=== PATIENT | female | born 1940 | race Caucasian/White ===

== ENCOUNTER 2017-07-08 09:17 | Day surgery (SDC) | payer MEDICARE ==
[~2017-07-08] VITALS: Ht 162.6 cm; Wt 47.5 kg
[2017-07-08 09:49] VITALS: BP 183/85
[2017-07-08] MEDS ORDERED: SODIUM CHLORIDE 0.9% 1,000 ML IV SCH (10:00)
[2017-07-08] MEDS ORDERED: LIDOCAINE-MPF 2% ,5ML ONE (10:06)
[2017-07-08] MEDS ORDERED: MIDAZOLAM 1 MG/ML, 5ML ONE (10:25)
[2017-07-08] MEDS ORDERED: FENTANYL PF 100 MCG/2ML ONE (10:25)
[2017-07-08] MEDS ORDERED: FLUMAZENIL 0.1 MG/1 ML, 5ML ONE (10:26)
[2017-07-08] MEDS ORDERED: NALOXONE 1 MG/ML, 2ML ONE (10:26)
== END 2017-07-08 13:00 ==
LOC: OUT 09:17
PROVIDERS: ATTEND Internal Medicine Hematology & Oncology
DX: C18.9 Malignant neoplasm of colon, unspecified (principal); D64.9 Anemia, unspecified; Z87.39 Personal history of other diseases of the musculoskeletal system and connective tissue; Z90.710 Acquired absence of both cervix and uterus; Z98.890 Other specified postprocedural states; Z96.642 Presence of left artificial hip joint
CPT/HCPCS: 49180; 77012; 88305; 99156; 99157; J2250; J3010; J3490; J2310

== ENCOUNTER → 2017-07-08 | Outpatient (CLI) | payer MEDICARE ==
[2017-07-08 13:31] LABS: BASOPHILS # (AUTO) 0.02 x10^3/uL (0-0.1); BASOPHILS % (AUTO) 1 % (0-1); EOSINOPHILS # (AUTO) 0.08 x10^3/uL (0-0.4); EOSINOPHILS % (AUTO) 2 % (1-7); LYMPHOCYTES # (AUTO) 1.51 x10^3/uL (1-3.4); LYMPHOCYTES % (AUTO) 41 % (22-44); MD NO; MEAN CORPUSCULAR HEMOGLOBIN 26.7 pg (27.0-34.8); MEAN CORPUSCULAR HGB CONC 32.9 g/dL (32.4-35.8); MEAN CORPUSCULAR VOLUME 81.1 fL (80-100); MEAN PLATELET VOLUME 8.4 fL (7.4-10.4); MONOCYTES # (AUTO) 0.42 x10^3/uL (0.2-0.8); MONOCYTES % (AUTO) 11 % (2-9); NEUTROPHILS # (AUTO) 1.66 x10^3/uL (1.8-6.8); NEUTROPHILS % (AUTO) 45 % (42-75); PLATELET COUNT 236 x10^3/uL (130-400); RED BLOOD COUNT 3.09 x10^6/uL (3.82-5.3); RED CELL DISTRIBUTION WIDTH 18.5 % (9.6-15.2)
[2017-07-08 13:41] LABS: % IRON SATURATION 6 % (20-55); IRON LEVEL 23 mcg/dL (50-170); TOTAL IRON BINDING CAPACITY 366 mcg/dL (250-450)
== END | disposition home or self-care (01) ==
LOC: LAB 13:08
PROVIDERS: ATTEND Family Medicine
DX: D50.8 Other iron deficiency anemias (principal)
CPT/HCPCS: 36415; 83540; 83550; 85025

== ENCOUNTER 2017-08-11 13:37 | Inpatient (IN) | payer MEDICARE ==
[~2017-08-11] VITALS: Ht 162.6 cm; Wt 52.3 kg
[2017-08-11] MEDS ORDERED: SODIUM CHLORIDE FLUSH 10ML SYR IVF ONE (14:00)
[2017-08-11] MEDS ORDERED: SODIUM CHLORIDE 0.9% 1,000ML IVBOLUS ONE (14:00)
[2017-08-11] MEDS ORDERED: ASPIRIN 81 MG TABLET CHEW PO ONE (14:00)
[2017-08-11 14:30] LABS: ALBUMIN 3.3 g/dL (3.4-5.0); ANION GAP 8 mmol/L (5-15); CALCIUM 11.5 mg/dL (8.5-10.1); CHLORIDE 104 mmol/L (98-107); CREATININE 0.79 mg/dL (0.55-1.02)
[2017-08-11 14:32] LABS: BASOPHILS # (AUTO) 0.03 x10^3/uL (0-0.1); BASOPHILS % (AUTO) 0 % (0-1); EOSINOPHILS # (AUTO) 0.04 x10^3/uL (0-0.4); EOSINOPHILS % (AUTO) 1 % (1-7); LYMPHOCYTES # (AUTO) 2.24 x10^3/uL (1-3.4); LYMPHOCYTES % (AUTO) 31 % (22-44); MD NO; MEAN CORPUSCULAR HEMOGLOBIN 26.1 pg (27.0-34.8); MEAN CORPUSCULAR VOLUME 78.9 fL (80-100); MEAN PLATELET VOLUME 10.5 fL (7.4-10.4); MONOCYTES # (AUTO) 0.78 x10^3/uL (0.2-0.8); MONOCYTES % (AUTO) 11 % (2-9); NEUTROPHILS # (AUTO) 4.06 x10^3/uL (1.8-6.8); NEUTROPHILS % (AUTO) 57 % (42-75); PLATELET COUNT 288 x10^3/uL (130-400)
[2017-08-11 14:35] LABS: ALKALINE PHOSPHATASE 110 U/L (45-117); BILIRUBIN,TOTAL 0.5 mg/dL (0.2-1.0); TOTAL PROTEIN 6.2 g/dL (6.4-8.2); TROPONIN I < 0.015 ng/mL (0.000-0.045)
[2017-08-11 14:56] LABS: ALANINE AMINOTRANSFERASE < 21 U/L (12-78)
[2017-08-11] MEDS ORDERED: ONDANSETRON ODT 4 MG PO PRN (15:30)
[2017-08-11] MEDS ORDERED: GUAIFENESIN/DM 200-20MG, 10ML UDC PO PRN (15:30)
[2017-08-11] MEDS ORDERED: ONDANSETRON 2MG/ML, 2ML IVPush PRN (15:30)
[2017-08-11] MEDS ORDERED: POTASSIUM CHLORIDE 40 MEQ in SODIUM CHLORIDE 0.9% 500 ML IV ONE (15:30)
[2017-08-11 15:41] LABS: FOLATE LEVEL > 20.0 ng/mL (3.1-17.5); TOTAL IRON BINDING CAPACITY 686 mcg/dL (250-450)
[2017-08-11 15:41] LABS: INTERNATIONAL NORMALIZED RATIO 1.28 (0.93-1.1); PROTHROMBIN TIME 13.1 Seconds (9.6-11.5)
[2017-08-11 15:44] LABS: % IRON SATURATION 95 % (20-55); IRON LEVEL 650 mcg/dL (50-170)
[2017-08-11] MEDS: ENOXAPARIN 40 MG/0.4 ML SQ SCH (16:00)
[2017-08-11 16:34] VITALS: BP 187/75
[2017-08-11] MEDS: LABETALOL 5MG/ML, 20ML IVPush PRN (16:34)
[2017-08-11 16:57] LABS: RED BLOOD COUNT 3.12 x10^6/uL (3.82-5.3)
[2017-08-11 17:06] LABS: ABSOLUTE RETICS # 0.079 x10^6/uL (0.5-2.5); RETICULOCYTE COUNT % 2.55 % (0.5-1.5)
[2017-08-11] MEDS: POTASSIUM CHLORIDE 20 MEQ in LACTATED RINGERS 1,000 ML IV SCH (17:29)
[2017-08-11 17:33] VITALS: BP 152/72
[2017-08-11 19:55] VITALS: BP 150/71
[2017-08-11] MEDS: POTASSIUM CHLORIDE 10 MEQ TABLET.ER PO SCH (20:46)
[2017-08-11 21:07] LABS: MICROSCOPIC INDICATED
[2017-08-11 21:08] LABS: CULTURE INDICATED? YES
[2017-08-12 01:43] VITALS: BP 160/67
[2017-08-12] MEDS: POTASSIUM CHLORIDE 20 MEQ in LACTATED RINGERS 1,000 ML IV SCH ×2 (03:06→15:36)
[2017-08-12 04:53] LABS: BASOPHILS # (AUTO) 0.02 x10^3/uL (0-0.1); BASOPHILS % (AUTO) 0 % (0-1); EOSINOPHILS # (AUTO) 0.06 x10^3/uL (0-0.4); EOSINOPHILS % (AUTO) 1 % (1-7); LYMPHOCYTES % (AUTO) 37 % (22-44); MD NO; MEAN CORPUSCULAR HEMOGLOBIN 25.8 pg (27.0-34.8); MEAN CORPUSCULAR HGB CONC 32.4 g/dL (32.4-35.8); MEAN CORPUSCULAR VOLUME 79.6 fL (80-100); MEAN PLATELET VOLUME 10.1 fL (7.4-10.4); MONOCYTES # (AUTO) 0.79 x10^3/uL (0.2-0.8); MONOCYTES % (AUTO) 16 % (2-9); NEUTROPHILS # (AUTO) 2.35 x10^3/uL (1.8-6.8); NEUTROPHILS % (AUTO) 46 % (42-75); PLATELET COUNT 232 x10^3/uL (130-400); RED BLOOD COUNT 3.04 x10^6/uL (3.82-5.3); RED CELL DISTRIBUTION WIDTH 21.5 % (9.6-15.2)
[2017-08-12 05:02] LABS: ALBUMIN 2.7 g/dL (3.4-5.0); ANION GAP 2 mmol/L (5-15); CALCIUM 10.2 mg/dL (8.5-10.1); CHLORIDE 112 mmol/L (98-107)
[2017-08-12 05:06] LABS: ALANINE AMINOTRANSFERASE 10 U/L (12-78); ALKALINE PHOSPHATASE 94 U/L (45-117); BILIRUBIN,TOTAL 0.5 mg/dL (0.2-1.0); CREATININE 0.68 mg/dL (0.55-1.02); TOTAL PROTEIN 5.2 g/dL (6.4-8.2)
[2017-08-12] MEDS: POTASSIUM CHLORIDE 10 MEQ TABLET.ER PO SCH (07:46)
[2017-08-12 08:00] VITALS: BP 155/73
[2017-08-12] MEDS ORDERED: OMNIPAQUE 350 MG/ML, 100ML BOTTLE ONE (10:57)
[2017-08-12] MEDS: METRONIDAZOLE PMX 500MG/100ML 100 ML IV SCH ×2 (13:30→15:36)
[2017-08-12 14:00] VITALS: BP 180/73
[2017-08-12] MEDS: PANTOPRAZOLE 40 MG IV IVPush SCH (14:21)
[2017-08-12] MEDS: CEFTRIAXONE PMX 1GM/50ML 50 ML IV SCH (14:21)
[2017-08-12] MEDS: ENOXAPARIN 40 MG/0.4 ML SQ SCH ×2 (16:00→19:20)
[2017-08-12] MEDS: AMLODIPINE 5 MG TABLET PO SCH (17:52)
[2017-08-12] MEDS: IBUPROFEN 200 MG TABLET PO PRN (20:07)
[2017-08-12 20:23] VITALS: BP_SYST 170; BP_SYST 173; BP_DIAS 71
[2017-08-12 21:14] VITALS: BP 161/65
[2017-08-13] MEDS: METRONIDAZOLE PMX 500MG/100ML 100 ML IV SCH ×3 (00:39→18:08)
[2017-08-13] MEDS: PANTOPRAZOLE 40 MG IV IVPush SCH ×2 (01:59→14:00)
[2017-08-13] MEDS: POTASSIUM CHLORIDE 20 MEQ in LACTATED RINGERS 1,000 ML IV SCH ×2 (01:59→14:00)
[2017-08-13 03:39] VITALS: BP 164/74
[2017-08-13 04:54] LABS: ANION GAP 5 mmol/L (5-15); CALCIUM 9.4 mg/dL (8.5-10.1); CHLORIDE 114 mmol/L (98-107); CREATININE 0.63 mg/dL (0.55-1.02)
[2017-08-13 05:06] LABS: MEAN CORPUSCULAR HEMOGLOBIN 25.9 pg (27.0-34.8); MEAN CORPUSCULAR HGB CONC 32.2 g/dL (32.4-35.8); MEAN CORPUSCULAR VOLUME 80.6 fL (80-100); MEAN PLATELET VOLUME 10.2 fL (7.4-10.4); PLATELET COUNT 219 x10^3/uL (130-400); RED BLOOD COUNT 2.83 x10^6/uL (3.82-5.3); RED CELL DISTRIBUTION WIDTH 21.6 % (9.6-15.2)
[2017-08-13 05:54] LABS: MD YES
[2017-08-13 05:57] LABS: BAND#(MANUAL) 0.15 x10^3/uL; BANDS%(MANUAL) 3 % (0-7); LYMPH#(MANUAL) 2.05 x10^3/uL (1-3.4); LYMPHS% (MANUAL) 41 % (22-44); MONOS#(MANUAL) 0.55 x10^3/uL (0.3-2.7); MONOS% (MANUAL) 11 % (2-9); SEG#(MANUAL) 2.25 x10^3/uL (1.8-6.8); SEGS% (MANUAL) 45 % (42-75)
[2017-08-13 05:58] LABS: <PLATELET ESTIMATE> ADEQUATE; ANISOCYTOSIS 1+; LARGE PLATELETS 1+; POLYCHROMASIA 1+
[2017-08-13] MEDS ORDERED: MAGNESIUM SULFATE PMX 2GM/50ML 50 ML IV ONE (07:30)
[2017-08-13] MEDS ORDERED: MAGNESIUM SULFATE PMX 4GM/100M 100 ML IVPB ONE (07:30)
[2017-08-13] MEDS: AMLODIPINE 5 MG TABLET PO SCH (08:00)
[2017-08-13] MEDS: NATURE THROID 32.5 MG PO SCH (08:00)
[2017-08-13 08:06] VITALS: BP 141/71
[2017-08-13] MEDS: CEFTRIAXONE PMX 1GM/50ML 50 ML IV SCH (14:00)
[2017-08-13 16:00] VITALS: BP 170/70
[2017-08-13 18:11] VITALS: BP 169/75
[2017-08-13 19:41] VITALS: BP 164/72
[2017-08-14 01:04] VITALS: BP 163/69
[2017-08-14] MEDS: POTASSIUM CHLORIDE 20 MEQ in LACTATED RINGERS 1,000 ML IV SCH ×2 (01:40→20:34)
[2017-08-14] MEDS: METRONIDAZOLE PMX 500MG/100ML 100 ML IV SCH ×3 (01:41→18:24)
[2017-08-14] MEDS: PANTOPRAZOLE 40 MG IV IVPush SCH ×2 (01:41→16:02)
[2017-08-14 05:43] LABS: MEAN CORPUSCULAR HEMOGLOBIN 25.7 pg (27.0-34.8); MEAN CORPUSCULAR HGB CONC 31.9 g/dL (32.4-35.8); MEAN CORPUSCULAR VOLUME 80.7 fL (80-100); MEAN PLATELET VOLUME 10.6 fL (7.4-10.4); PLATELET COUNT 235 x10^3/uL (130-400); RED BLOOD COUNT 2.83 x10^6/uL (3.82-5.3); RED CELL DISTRIBUTION WIDTH 21.8 % (9.6-15.2)
[2017-08-14 05:49] LABS: CHLORIDE 112 mmol/L (98-107)
[2017-08-14 05:59] LABS: ALANINE AMINOTRANSFERASE 9 U/L (12-78); ALBUMIN 2.6 g/dL (3.4-5.0); ALKALINE PHOSPHATASE 83 U/L (45-117); ANION GAP 6 mmol/L (5-15); BILIRUBIN,TOTAL 0.7 mg/dL (0.2-1.0); CALCIUM 9.3 mg/dL (8.5-10.1); TOTAL PROTEIN 5.1 g/dL (6.4-8.2)
[2017-08-14 06:30] LABS: MD YES
[2017-08-14 06:33] LABS: <PLATELET ESTIMATE> ADEQUATE; ANISOCYTOSIS 1+; BAND#(MANUAL) 0.15 x10^3/uL; BANDS%(MANUAL) 3 % (0-7); BASOS#(MANUAL) 0.05 x10^3/uL (0-0.1); BASOS% (MANUAL) 1 % (0-1); EOS#(MANUAL) 0.15 x10^3/uL (0.0-0.4); EOS% (MANUAL) 3 % (1-7); LYMPH#(MANUAL) 2.25 x10^3/uL (1-3.4); LYMPHS% (MANUAL) 45 % (22-44); MICROCYTOSIS 1+; MONOS#(MANUAL) 0.25 x10^3/uL (0.3-2.7); MONOS% (MANUAL) 5 % (2-9); POLYCHROMASIA 1+; SEG#(MANUAL) 2.15 x10^3/uL (1.8-6.8); SEGS% (MANUAL) 43 % (42-75)
[2017-08-14 06:34] LABS: LARGE PLATELETS 1+
[2017-08-14 07:30] VITALS: BP 174/74
[2017-08-14] MEDS ORDERED: MIDAZOLAM 1 MG/ML, 5ML ONE (08:32)
[2017-08-14] MEDS ORDERED: FENTANYL PF 100 MCG/2ML ONE (08:32)
[2017-08-14] MEDS: NATURE THROID 32.5 MG PO SCH (08:55)
[2017-08-14] MEDS: AMLODIPINE 5 MG TABLET PO SCH (08:55)
[2017-08-14 14:00] VITALS: BP 138/62
[2017-08-14] MEDS: CEFTRIAXONE PMX 1GM/50ML 50 ML IV SCH (16:02)
[2017-08-14] MEDS: ENOXAPARIN 40 MG/0.4 ML SQ SCH (16:04)
[2017-08-14 19:33] VITALS: BP 169/72
[2017-08-15 01:28] VITALS: BP 169/67
[2017-08-15] MEDS: METRONIDAZOLE PMX 500MG/100ML 100 ML IV SCH ×2 (02:02→09:58)
[2017-08-15] MEDS: PANTOPRAZOLE 40 MG IV IVPush SCH ×2 (04:04→14:58)
[2017-08-15] MEDS: NATURE THROID 32.5 MG PO SCH (05:50)
[2017-08-15] MEDS: POTASSIUM CHLORIDE 20 MEQ in LACTATED RINGERS 1,000 ML IV SCH (05:51)
[2017-08-15 07:26] VITALS: BP 177/71
[2017-08-15] MEDS: IBUPROFEN 200 MG TABLET PO PRN (08:43)
[2017-08-15] MEDS: AMLODIPINE 5 MG TABLET PO SCH (08:43)
[2017-08-15 11:26] LABS: ANION GAP 7 mmol/L (5-15); CALCIUM 9.6 mg/dL (8.5-10.1); CHLORIDE 110 mmol/L (98-107)
[2017-08-15 11:31] LABS: MEAN CORPUSCULAR HGB CONC 32.2 g/dL (32.4-35.8); MEAN CORPUSCULAR VOLUME 80.9 fL (80-100); PLATELET COUNT 237 x10^3/uL (130-400); RED BLOOD COUNT 3.12 x10^6/uL (3.82-5.3); RED CELL DISTRIBUTION WIDTH 22.4 % (9.6-15.2)
[2017-08-15 11:46] LABS: BASOPHILS # (AUTO) 0.02 x10^3/uL (0-0.1); BASOPHILS % (AUTO) 0 % (0-1); EOSINOPHILS # (AUTO) 0.07 x10^3/uL (0-0.4); EOSINOPHILS % (AUTO) 1 % (1-7); LYMPHOCYTES # (AUTO) 1.97 x10^3/uL (1-3.4); LYMPHOCYTES % (AUTO) 40 % (22-44); MD SCAN; MONOCYTES # (AUTO) 0.69 x10^3/uL (0.2-0.8); MONOCYTES % (AUTO) 14 % (2-9); NEUTROPHILS % (AUTO) 45 % (42-75)
[2017-08-15] MEDS ORDERED: AMLO5TAB2 PO (13:47)
[2017-08-15] MEDS ORDERED: CIPR500T87 PO (13:47)
[2017-08-15] MEDS ORDERED: METR500T PO (13:47)
[2017-08-15] MEDS ORDERED: OMEP-110 PO (13:48)
[2017-08-15 14:46] VITALS: BP 177/79
[2017-08-15] MEDS: CEFTRIAXONE PMX 1GM/50ML 50 ML IV SCH (14:57)
[2017-08-15] MEDS: ENOXAPARIN 40 MG/0.4 ML SQ SCH (14:58)
[2017-08-15] MEDS: LABETALOL 5MG/ML, 20ML IVPush PRN (14:59)
[2017-08-15 16:12] VITALS: BP 150/70
== END 2017-08-15 17:50 | disposition home health service (06) | DRG 840 ==
LOC: ED 14:34 → 3NW 14:35 → ED 15:17
PROVIDERS: ADMIT Internal Medicine; ATTEND Internal Medicine
PROC: 0DB68ZX Excision of Stomach, Via Natural or Artificial Opening Endoscopic, Diagnostic (ICD-10-PCS; principal; 2017-08-14 09:15)
DX: C81.00 Nodular lymphocyte predominant Hodgkin lymphoma, unspecified site (principal); K29.71 Gastritis, unspecified, with bleeding; C18.3 Malignant neoplasm of hepatic flexure; D62 Acute posthemorrhagic anemia; N39.0 Urinary tract infection, site not specified; D63.8 Anemia in other chronic diseases classified elsewhere; R62.7 Adult failure to thrive; R16.1 Splenomegaly, not elsewhere classified; E83.52 Hypercalcemia; E86.0 Dehydration; E87.6 Hypokalemia; I10 Essential (primary) hypertension; K59.00 Constipation, unspecified; D50.8 Other iron deficiency anemias; K52.9 Noninfective gastroenteritis and colitis, unspecified; Z96.642 Presence of left artificial hip joint; M06.9 Rheumatoid arthritis, unspecified; Z66 Do not resuscitate; Z80.0 Family history of malignant neoplasm of digestive organs; Z85.048 Personal history of other malignant neoplasm of rectum, rectosigmoid junction, and anus; Z87.891 Personal history of nicotine dependence; Z90.710 Acquired absence of both cervix and uterus; Z98.82 Breast implant status
CPT/HCPCS: 36415; 71045; 74018; 74177; 76700; 80048; 80053; 81001; 82607; 82728; 82746; 83540; 83550; 83690; 83735; 84100; 84484; 85025; 85045; 85610; 87040; 87086; 88305; 93005; 96360; 99152; 99153; 99285; J0696; J1650; J2250; J3010; J3480; Q9967; C9113; J3475; J7030; J7040; J7120

== ENCOUNTER 2017-09-06 11:52 | Inpatient (IN) | payer MEDICARE ==
[~2017-09-06] VITALS: Ht 162.6 cm; Wt 59.1 kg
[~2017-09-06 11:52] MED LIST: AMLO5TAB2 PO; ASCO10004 PO; CHOL500015 PO; CIPR500T87 PO; ENZY1CAP PO; LACT1CAP35 PO; METR500T PO; METR500T8 PO; MULT-658 PO; OMEG1CAP34 PO; OMEP-110 PO; THYR16.2 PO; [UNRECOGNIZED DRUG - CODE] SL; [UNRECOGNIZED DRUG - OTHER] PO; aloe PO; curcumin PO; folate PO; magnesium PO
[2017-09-06] MEDS ORDERED: PLEASE ENTER HEIGHT AND WEIGHT MC SCH (13:00)
[2017-09-06] MEDS ORDERED: D5%-0.45NACL+KCL 20MEQ 1,000 ML IV SCH (13:00)
[2017-09-06 13:10] LABS: MEAN CORPUSCULAR HEMOGLOBIN 29.8 pg (27.0-34.8); MEAN CORPUSCULAR HGB CONC 33.9 g/dL (32.4-35.8); MEAN CORPUSCULAR VOLUME 87.8 fL (80-100); MEAN PLATELET VOLUME 9.8 fL (7.4-10.4); PLATELET COUNT 228 x10^3/uL (130-400); RED BLOOD COUNT 3.45 x10^6/uL (3.82-5.3); RED CELL DISTRIBUTION WIDTH 23.4 % (9.6-15.2)
[2017-09-06 13:34] LABS: ALBUMIN 3.3 g/dL (3.4-5.0); ANION GAP 5 mmol/L (5-15); CHLORIDE 101 mmol/L (98-107)
[2017-09-06 13:38] LABS: CREATININE 1.17 mg/dL (0.55-1.02)
[2017-09-06 13:39] LABS: ALANINE AMINOTRANSFERASE 14 U/L (12-78); ALKALINE PHOSPHATASE 82 U/L (45-117); BILIRUBIN,TOTAL 0.5 mg/dL (0.2-1.0)
[2017-09-06 13:40] LABS: BASOPHILS # (AUTO) 0.02 x10^3/uL (0-0.1); BASOPHILS % (AUTO) 0 % (0-1); EOSINOPHILS # (AUTO) 0.06 x10^3/uL (0-0.4); EOSINOPHILS % (AUTO) 1 % (1-7); LYMPHOCYTES # (AUTO) 1.89 x10^3/uL (1-3.4); LYMPHOCYTES % (AUTO) 34 % (22-44); MD MORPH REVIEW ONLY; MONOCYTES # (AUTO) 0.75 x10^3/uL (0.2-0.8); MONOCYTES % (AUTO) 14 % (2-9); NEUTROPHILS # (AUTO) 2.88 x10^3/uL (1.8-6.8); NEUTROPHILS % (AUTO) 51 % (42-75)
[2017-09-06 13:43] LABS: CALCIUM 14.2 mg/dL (8.5-10.1)
[2017-09-06 13:44] LABS: ANISOCYTOSIS 1+; HYPOCHROMIA 1+; MICROCYTOSIS 1+
[2017-09-06 13:45] LABS: <PLATELET ESTIMATE> ADEQUATE; <PLT MORPHOLOGY> NORMAL PLT MORPH
[2017-09-06] MEDS: SODIUM CHLORIDE 0.9% 1,000 ML IV SCH ×2 (13:57→17:46)
[2017-09-06] MEDS ORDERED: POLYETHYLENE GLYCOL 17 GM PACKET PO ONE (14:00)
[2017-09-06 14:05] VITALS: BP 168/76
[2017-09-06 15:15] VITALS: BP 193/73
[2017-09-06 16:35] VITALS: BP 155/73
[2017-09-06] MEDS ORDERED: hydrALAzine 20 MG/ML, 1ML IVPush PRN (17:30)
[2017-09-06] MEDS ORDERED: PAMIDRONATE 3 MG/ML, 10ML IV SCH (18:00)
[2017-09-06] MEDS: PAMIDRONATE 30 MG in SODIUM CHLORIDE 0.9% 250 ML IV SCH (18:29)
[2017-09-06 19:08] VITALS: BP 176/84
[2017-09-06] MEDS ORDERED: POLYETHYLENE GLYCOL 17 GM PACKET ONE (20:08)
[2017-09-06] MEDS: MAGNESIUM OXIDE 400 MG TABLET PO SCH (20:18)
[2017-09-06 21:02] LABS: MICROSCOPIC INDICATED
[2017-09-06 21:09] LABS: CULTURE INDICATED? YES
[2017-09-07] VITALS (7 sets, daily range): BP systolic 158–182; BP diastolic 71–83
[2017-09-07] MEDS ORDERED: FUROSEMIDE 40 MG/4 ML IV ONE
[2017-09-07] MEDS ORDERED: SODIUM CHLORIDE 0.9% 1,000 ML IV SCH
[2017-09-07 04:46] LABS: MEAN CORPUSCULAR HEMOGLOBIN 29.5 pg (27.0-34.8); MEAN CORPUSCULAR HGB CONC 33.5 g/dL (32.4-35.8); MEAN CORPUSCULAR VOLUME 87.9 fL (80-100); MEAN PLATELET VOLUME 9.9 fL (7.4-10.4); PLATELET COUNT 218 x10^3/uL (130-400); RED CELL DISTRIBUTION WIDTH 22.9 % (9.6-15.2)
[2017-09-07 04:50] LABS: ANION GAP 7 mmol/L (5-15); CALCIUM 13.2 mg/dL (8.5-10.1); CHLORIDE 107 mmol/L (98-107)
[2017-09-07 04:54] LABS: ALANINE AMINOTRANSFERASE 16 U/L (12-78); ALKALINE PHOSPHATASE 75 U/L (45-117); BILIRUBIN,TOTAL 0.5 mg/dL (0.2-1.0); CREATININE 0.98 mg/dL (0.55-1.02); TOTAL PROTEIN 5.7 g/dL (6.4-8.2)
[2017-09-07 05:19] LABS: BASOPHILS # (AUTO) 0.03 x10^3/uL (0-0.1); BASOPHILS % (AUTO) 1 % (0-1); EOSINOPHILS # (AUTO) 0.08 x10^3/uL (0-0.4); EOSINOPHILS % (AUTO) 2 % (1-7); LYMPHOCYTES # (AUTO) 1.98 x10^3/uL (1-3.4); LYMPHOCYTES % (AUTO) 39 % (22-44); MD SCAN; MONOCYTES # (AUTO) 0.66 x10^3/uL (0.2-0.8); MONOCYTES % (AUTO) 13 % (2-9); NEUTROPHILS # (AUTO) 2.37 x10^3/uL (1.8-6.8); NEUTROPHILS % (AUTO) 46 % (42-75)
[2017-09-07] MEDS ORDERED: LACTATED RINGERS 1,000 ML IV SCH (07:00)
[2017-09-07] MEDS ORDERED: AMLODIPINE 2.5 MG TABLET PO SCH (09:00)
[2017-09-07] MEDS ORDERED: CHOLECALCIFEROL 1,000 UNIT TABLET PO SCH (09:00)
[2017-09-07] MEDS: OMEGA-3/FISH OIL CAPSULE PO SCH ×3 (09:47→11:23)
[2017-09-07] MEDS: FOLIC ACID 1 MG TABLET PO SCH (09:47)
[2017-09-07] MEDS: AMLODIPINE 5 MG TABLET PO SCH ×2 (09:47→21:02)
[2017-09-07] MEDS: ENALAPRILAT 1.25 MG/ML, 2ML IV PRN ×2 (11:58→16:12)
[2017-09-07] MEDS: PAMIDRONATE 30 MG in SODIUM CHLORIDE 0.9% 250 ML IV SCH (18:30)
[2017-09-07] MEDS: LISINOPRIL 20 MG TABLET PO SCH (18:38)
[2017-09-07] MEDS: NS + 20MEQ KCL 1,000 ML IV SCH (19:51)
[2017-09-07] MEDS: ACETAMINOPHEN 325 MG TABLET PO PRN (19:51)
[2017-09-07] MEDS: MAGNESIUM OXIDE 400 MG TABLET PO SCH (21:02)
[2017-09-08] MEDS: NS + 20MEQ KCL 1,000 ML IV SCH ×3 (02:15→17:51)
[2017-09-08 02:16] VITALS: BP 150/64
[2017-09-08 04:36] LABS: BASOPHILS # (AUTO) 0.01 x10^3/uL (0-0.1); BASOPHILS % (AUTO) 0 % (0-1); EOSINOPHILS # (AUTO) 0.09 x10^3/uL (0-0.4); EOSINOPHILS % (AUTO) 2 % (1-7); LYMPHOCYTES # (AUTO) 1.54 x10^3/uL (1-3.4); LYMPHOCYTES % (AUTO) 39 % (22-44); MD NO; MEAN CORPUSCULAR HEMOGLOBIN 29.4 pg (27.0-34.8); MEAN CORPUSCULAR HGB CONC 33.2 g/dL (32.4-35.8); MEAN CORPUSCULAR VOLUME 88.8 fL (80-100); MEAN PLATELET VOLUME 9.5 fL (7.4-10.4); MONOCYTES # (AUTO) 0.62 x10^3/uL (0.2-0.8); MONOCYTES % (AUTO) 16 % (2-9); NEUTROPHILS % (AUTO) 43 % (42-75); PLATELET COUNT 184 x10^3/uL (130-400); RED BLOOD COUNT 2.89 x10^6/uL (3.82-5.3); RED CELL DISTRIBUTION WIDTH 21.8 % (9.6-15.2)
[2017-09-08 04:46] LABS: CHLORIDE 112 mmol/L (98-107)
[2017-09-08 04:53] LABS: ALANINE AMINOTRANSFERASE 10 U/L (12-78); ALBUMIN 2.6 g/dL (3.4-5.0); ALKALINE PHOSPHATASE 67 U/L (45-117); ANION GAP 4 mmol/L (5-15); BILIRUBIN,TOTAL 0.5 mg/dL (0.2-1.0); CREATININE 0.81 mg/dL (0.55-1.02); TOTAL PROTEIN 4.8 g/dL (6.4-8.2)
[2017-09-08] MEDS ORDERED: POTASSIUM CHLORIDE 20 MEQ TAB.ER.PRT PO ONE ×3 (06:30→13:30)
[2017-09-08 06:41] VITALS: BP 183/73
[2017-09-08 07:28] VITALS: BP 182/74
[2017-09-08] MEDS: ENALAPRILAT 1.25 MG/ML, 2ML IV PRN (07:36)
[2017-09-08] MEDS ORDERED: GOLYTELY 4,000ML ORAL.SOL PO SCH (08:00)
[2017-09-08] MEDS ORDERED: LABETALOL 5MG/ML, 20ML IVPush PRN (08:30)
[2017-09-08 08:36] VITALS: BP 145/65
[2017-09-08] MEDS: FUROSEMIDE 40 MG/4 ML IV SCH (09:00)
[2017-09-08 09:17] LABS: % IRON SATURATION 21 % (20-55); IRON LEVEL 41 mcg/dL (50-170); TOTAL IRON BINDING CAPACITY 195 mcg/dL (250-450)
[2017-09-08] MEDS: LISINOPRIL 20 MG TABLET PO SCH ×2 (09:25→21:16)
[2017-09-08] MEDS: AMLODIPINE 5 MG TABLET PO SCH ×2 (09:25→21:15)
[2017-09-08 09:43] LABS: FREE T4 (FREE THYROXINE) 1.22 ng/dL (0.76-1.46)
[2017-09-08] MEDS ORDERED: GADOBUTROL 7.5 MMOL/7.5 ML VIAL ONE (09:49)
[2017-09-08 09:57] LABS: FOLATE LEVEL > 20.0 ng/mL (3.1-17.5)
[2017-09-08] MEDS: FOLIC ACID 1 MG TABLET PO SCH (12:14)
[2017-09-08] MEDS: ALLOPURINOL 300 MG TABLET PO SCH ×2 (12:14→21:15)
[2017-09-08] MEDS: CARVEDILOL 25 MG TABLET PO SCH ×2 (12:15→18:35)
[2017-09-08 12:16] VITALS: BP 163/75
[2017-09-08] MEDS: ACETAMINOPHEN 325 MG TABLET PO PRN (12:24)
[2017-09-08] MEDS: ONDANSETRON 2MG/ML, 2ML IVPush PRN (12:24)
[2017-09-08] MEDS ORDERED: NEOMYCIN SULFATE 500 MG TABLET PO ONE ×3 (14:00→20:00)
[2017-09-08] MEDS ORDERED: metroNIDAZOLE 500 MG TABLET PO ONE ×3 (14:00→20:00)
[2017-09-08 15:10] LABS: CLOSTRIDIUM DIFFICILE ANTIGEN NEGATIVE; CLOSTRIDIUM DIFFICILE TOXIN NEGATIVE (Negative)
[2017-09-08] MEDS: PAMIDRONATE 30 MG in SODIUM CHLORIDE 0.9% 250 ML IV SCH (18:30)
[2017-09-08] MEDS: MAGNESIUM OXIDE 400 MG TABLET PO SCH (21:16)
[2017-09-08 21:45] VITALS: BP 154/72
[2017-09-09] MEDS: NS + 20MEQ KCL 1,000 ML IV SCH ×2 (00:55→08:33)
[2017-09-09 01:07] VITALS: BP 139/75
[2017-09-09 04:25] LABS: BASOPHILS # (AUTO) 0.02 x10^3/uL (0-0.1); BASOPHILS % (AUTO) 1 % (0-1); EOSINOPHILS # (AUTO) 0.07 x10^3/uL (0-0.4); EOSINOPHILS % (AUTO) 2 % (1-7); LYMPHOCYTES # (AUTO) 1.68 x10^3/uL (1-3.4); LYMPHOCYTES % (AUTO) 42 % (22-44); MD NO; MEAN CORPUSCULAR HEMOGLOBIN 29.7 pg (27.0-34.8); MEAN CORPUSCULAR HGB CONC 33.1 g/dL (32.4-35.8); MEAN CORPUSCULAR VOLUME 89.9 fL (80-100); MEAN PLATELET VOLUME 9.5 fL (7.4-10.4); MONOCYTES # (AUTO) 0.45 x10^3/uL (0.2-0.8); MONOCYTES % (AUTO) 11 % (2-9); NEUTROPHILS # (AUTO) 1.76 x10^3/uL (1.8-6.8); NEUTROPHILS % (AUTO) 44 % (42-75); PLATELET COUNT 160 x10^3/uL (130-400); RED BLOOD COUNT 2.68 x10^6/uL (3.82-5.3); RED CELL DISTRIBUTION WIDTH 21.8 % (9.6-15.2)
[2017-09-09 04:28] LABS: ALANINE AMINOTRANSFERASE 11 U/L (12-78); ALBUMIN 2.5 g/dL (3.4-5.0); ANION GAP 4 mmol/L (5-15); CALCIUM 10.2 mg/dL (8.5-10.1); CHLORIDE 118 mmol/L (98-107); CREATININE 0.88 mg/dL (0.55-1.02)
[2017-09-09 04:30] LABS: ALKALINE PHOSPHATASE 65 U/L (45-117); BILIRUBIN,TOTAL 0.4 mg/dL (0.2-1.0); TOTAL PROTEIN 4.6 g/dL (6.4-8.2)
[2017-09-09] MEDS: CARVEDILOL 25 MG TABLET PO SCH ×2 (05:25→18:00)
[2017-09-09 08:24] VITALS: BP 143/83
[2017-09-09] MEDS: FUROSEMIDE 40 MG/4 ML IV SCH (08:31)
[2017-09-09] MEDS: LISINOPRIL 20 MG TABLET PO SCH ×2 (08:32→21:19)
[2017-09-09] MEDS: AMLODIPINE 5 MG TABLET PO SCH ×2 (08:32→21:18)
[2017-09-09] MEDS: FOLIC ACID 1 MG TABLET PO SCH (08:32)
[2017-09-09] MEDS: OMEGA-3/FISH OIL CAPSULE PO SCH (08:32)
[2017-09-09] MEDS: ALLOPURINOL 300 MG TABLET PO SCH ×2 (08:32→21:18)
[2017-09-09] MEDS ORDERED: LACTATED RINGERS 1,000 ML IV SCH (11:00)
[2017-09-09] MEDS ORDERED: FUROSEMIDE 40 MG/4 ML IV ONE ×2 (11:00→13:30)
[2017-09-09] MEDS: SODIUM CHLORIDE 0.45% 1,000 ML IV SCH ×2 (12:52→21:19)
[2017-09-09 13:29] VITALS: BP 151/68
[2017-09-09] MEDS: ACETAMINOPHEN 325 MG TABLET PO PRN (18:02)
[2017-09-09] MEDS: ONDANSETRON 2MG/ML, 2ML IVPush PRN (18:02)
[2017-09-09 20:11] VITALS: BP 144/71
[2017-09-09] MEDS: MAGNESIUM OXIDE 400 MG TABLET PO SCH (21:18)
[2017-09-10 01:43] VITALS: BP 128/61
[2017-09-10] MEDS: SODIUM CHLORIDE 0.45% 1,000 ML IV SCH ×3 (03:51→17:57)
[2017-09-10 04:15] LABS: BASOPHILS # (AUTO) 0.02 x10^3/uL (0-0.1); BASOPHILS % (AUTO) 0 % (0-1); EOSINOPHILS # (AUTO) 0.11 x10^3/uL (0-0.4); EOSINOPHILS % (AUTO) 2 % (1-7); LYMPHOCYTES # (AUTO) 1.98 x10^3/uL (1-3.4); LYMPHOCYTES % (AUTO) 42 % (22-44); MD NO; MEAN CORPUSCULAR HEMOGLOBIN 30.3 pg (27.0-34.8); MEAN CORPUSCULAR HGB CONC 33.7 g/dL (32.4-35.8); MEAN PLATELET VOLUME 9.7 fL (7.4-10.4); MONOCYTES # (AUTO) 0.54 x10^3/uL (0.2-0.8); MONOCYTES % (AUTO) 11 % (2-9); NEUTROPHILS # (AUTO) 2.06 x10^3/uL (1.8-6.8); NEUTROPHILS % (AUTO) 44 % (42-75); PLATELET COUNT 149 x10^3/uL (130-400); RED BLOOD COUNT 2.61 x10^6/uL (3.82-5.3); RED CELL DISTRIBUTION WIDTH 21.2 % (9.6-15.2)
[2017-09-10 04:18] LABS: ALANINE AMINOTRANSFERASE 11 U/L (12-78); ALBUMIN 2.5 g/dL (3.4-5.0); ANION GAP 6 mmol/L (5-15); CALCIUM 9.5 mg/dL (8.5-10.1); CHLORIDE 112 mmol/L (98-107)
[2017-09-10 04:20] LABS: ALKALINE PHOSPHATASE 63 U/L (45-117); BILIRUBIN,TOTAL 0.5 mg/dL (0.2-1.0); CREATININE 0.83 mg/dL (0.55-1.02); TOTAL PROTEIN 4.6 g/dL (6.4-8.2)
[2017-09-10] MEDS: CARVEDILOL 25 MG TABLET PO SCH ×2 (06:18→17:57)
[2017-09-10] MEDS ORDERED: POTASSIUM CHLORIDE 20 MEQ TAB.ER.PRT PO ONE ×2 (07:00→11:00)
[2017-09-10 07:55] VITALS: BP 135/71
[2017-09-10] MEDS: OMEGA-3/FISH OIL CAPSULE PO SCH (09:07)
[2017-09-10] MEDS: AMLODIPINE 5 MG TABLET PO SCH ×2 (09:08→20:21)
[2017-09-10] MEDS: LISINOPRIL 20 MG TABLET PO SCH ×2 (09:08→20:21)
[2017-09-10] MEDS: FOLIC ACID 1 MG TABLET PO SCH (09:08)
[2017-09-10] MEDS: ALLOPURINOL 300 MG TABLET PO SCH ×2 (09:08→20:21)
[2017-09-10] MEDS ORDERED: DIPHENHYDRAMINE 50 MG/ML, 1ML IVPush ONE (09:30)
[2017-09-10] MEDS ORDERED: ACETAMINOPHEN 325 MG TABLET PO ONE (09:30)
[2017-09-10] MEDS ORDERED: FAMOTIDINE 20 MG/2 ML IVPush ONE (09:30)
[2017-09-10] MEDS ORDERED: SODIUM CHLORIDE 0.9% IV ONE (10:00)
[2017-09-10] MEDS ORDERED: RITUXIMAB IV ONE (10:00)
[2017-09-10] MEDS ORDERED: FUROSEMIDE 40 MG/4 ML IV ONE (11:00)
[2017-09-10 13:45] VITALS: BP 121/61
[2017-09-10 16:30] VITALS: BP 146/69
[2017-09-10 19:42] VITALS: BP 139/69
[2017-09-10] MEDS: MAGNESIUM OXIDE 400 MG TABLET PO SCH (20:21)
[2017-09-11] VITALS (8 sets, daily range): BP systolic 128–156; BP diastolic 62–77
[2017-09-11] MEDS: SODIUM CHLORIDE 0.45% 1,000 ML IV SCH ×4 (00:27→22:05)
[2017-09-11 03:53] LABS: ALANINE AMINOTRANSFERASE 13 U/L (12-78); ALBUMIN 2.7 g/dL (3.4-5.0); ANION GAP 7 mmol/L (5-15); CALCIUM 9.4 mg/dL (8.5-10.1); CHLORIDE 110 mmol/L (98-107); CREATININE 0.85 mg/dL (0.55-1.02)
[2017-09-11 03:55] LABS: ALKALINE PHOSPHATASE 75 U/L (45-117); BILIRUBIN,TOTAL 0.3 mg/dL (0.2-1.0)
[2017-09-11 04:24] LABS: MEAN CORPUSCULAR HEMOGLOBIN 29.8 pg (27.0-34.8); MEAN CORPUSCULAR HGB CONC 33.5 g/dL (32.4-35.8); MEAN PLATELET VOLUME 10.4 fL (7.4-10.4); PLATELET COUNT 170 x10^3/uL (130-400); RED BLOOD COUNT 2.54 x10^6/uL (3.82-5.3); RED CELL DISTRIBUTION WIDTH 20.9 % (9.6-15.2)
[2017-09-11 06:05] LABS: BASOPHILS # (AUTO) 0.01 x10^3/uL (0-0.1); BASOPHILS % (AUTO) 0 % (0-1); EOSINOPHILS % (AUTO) 0 % (1-7); LYMPHOCYTES # (AUTO) 1.06 x10^3/uL (1-3.4); LYMPHOCYTES % (AUTO) 24 % (22-44); MD SCAN; MONOCYTES # (AUTO) 0.24 x10^3/uL (0.2-0.8); MONOCYTES % (AUTO) 5 % (2-9); NEUTROPHILS # (AUTO) 3.21 x10^3/uL (1.8-6.8); NEUTROPHILS % (AUTO) 71 % (42-75)
[2017-09-11] MEDS: CARVEDILOL 25 MG TABLET PO SCH ×2 (06:41→18:53)
[2017-09-11] MEDS: OMEGA-3/FISH OIL CAPSULE PO SCH (09:05)
[2017-09-11] MEDS: ALLOPURINOL 300 MG TABLET PO SCH ×2 (09:05→20:13)
[2017-09-11] MEDS: FOLIC ACID 1 MG TABLET PO SCH (09:05)
[2017-09-11] MEDS: LISINOPRIL 20 MG TABLET PO SCH ×2 (09:05→20:13)
[2017-09-11] MEDS: AMLODIPINE 5 MG TABLET PO SCH ×2 (09:05→20:13)
[2017-09-11] MEDS ORDERED: FOSAPREPITANT 150 MG in SODIUM CHLORIDE 0.9% 145 ML IV ONE ×2 (09:30→11:30)
[2017-09-11] MEDS ORDERED: ONDANSETRON 16 MG in SODIUM CHLORIDE 0.9% 50 ML IVPB ONE ×2 (09:30→11:30)
[2017-09-11] MEDS ORDERED: DIPHENHYDRAMINE 50 MG/ML, 1ML ONE (10:17)
[2017-09-11] MEDS ORDERED: DIPHENHYDRAMINE 50 MG/ML, 1ML IVPush ONE (10:30)
[2017-09-11] MEDS ORDERED: SODIUM CHLORIDE 0.9% IV ONE (12:30)
[2017-09-11] MEDS ORDERED: CYCLOPHOSPHAMIDE IV ONE (12:30)
[2017-09-11] MEDS ORDERED: DOXORUBICIN IVPush ONE (13:30)
[2017-09-11] MEDS ORDERED: vinCRIStine 1 MG in SODIUM CHLORIDE 0.9% 25 ML IV ONE (14:00)
[2017-09-11] MEDS: MAGNESIUM OXIDE 400 MG TABLET PO SCH (20:13)
[2017-09-12 02:15] VITALS: BP 154/71
[2017-09-12] MEDS: ONDANSETRON 2MG/ML, 2ML IVPush PRN (02:42)
[2017-09-12] MEDS: SODIUM CHLORIDE 0.45% 1,000 ML IV SCH ×3 (04:14→21:38)
[2017-09-12 05:28] LABS: BASOPHILS # (AUTO) 0.06 x10^3/uL (0-0.1); BASOPHILS % (AUTO) 1 % (0-1); EOSINOPHILS % (AUTO) 0 % (1-7); LYMPHOCYTES # (AUTO) 1.66 x10^3/uL (1-3.4); LYMPHOCYTES % (AUTO) 27 % (22-44); MD NO; MEAN CORPUSCULAR HEMOGLOBIN 29.9 pg (27.0-34.8); MEAN CORPUSCULAR HGB CONC 33.7 g/dL (32.4-35.8); MEAN CORPUSCULAR VOLUME 88.8 fL (80-100); MEAN PLATELET VOLUME 9.4 fL (7.4-10.4); MONOCYTES # (AUTO) 0.58 x10^3/uL (0.2-0.8); MONOCYTES % (AUTO) 9 % (2-9); NEUTROPHILS # (AUTO) 3.89 x10^3/uL (1.8-6.8); NEUTROPHILS % (AUTO) 63 % (42-75); PLATELET COUNT 175 x10^3/uL (130-400); RED BLOOD COUNT 2.99 x10^6/uL (3.82-5.3); RED CELL DISTRIBUTION WIDTH 20.3 % (9.6-15.2)
[2017-09-12 05:29] LABS: ALBUMIN 2.8 g/dL (3.4-5.0); ANION GAP 7 mmol/L (5-15); CALCIUM 9.3 mg/dL (8.5-10.1); CHLORIDE 113 mmol/L (98-107)
[2017-09-12 05:33] LABS: ALANINE AMINOTRANSFERASE 19 U/L (12-78); ALKALINE PHOSPHATASE 70 U/L (45-117); BILIRUBIN,TOTAL 0.4 mg/dL (0.2-1.0); CREATININE 0.91 mg/dL (0.55-1.02); TOTAL PROTEIN 4.9 g/dL (6.4-8.2)
[2017-09-12] MEDS: CARVEDILOL 25 MG TABLET PO SCH ×2 (06:01→17:26)
[2017-09-12 08:37] VITALS: BP 149/68
[2017-09-12] MEDS: OMEGA-3/FISH OIL CAPSULE PO SCH (08:40)
[2017-09-12] MEDS: ALLOPURINOL 300 MG TABLET PO SCH ×2 (08:40→21:38)
[2017-09-12] MEDS: AMLODIPINE 5 MG TABLET PO SCH ×2 (08:40→21:38)
[2017-09-12] MEDS: FOLIC ACID 1 MG TABLET PO SCH (08:40)
[2017-09-12] MEDS: LISINOPRIL 20 MG TABLET PO SCH ×2 (08:41→21:38)
[2017-09-12 14:24] VITALS: BP 142/66
[2017-09-12 19:56] VITALS: BP 148/67
[2017-09-12] MEDS: MAGNESIUM OXIDE 400 MG TABLET PO SCH (21:38)
[2017-09-13 02:00] VITALS: BP 146/77
[2017-09-13] MEDS: SODIUM CHLORIDE 0.45% 1,000 ML IV SCH ×3 (04:03→20:32)
[2017-09-13 05:40] LABS: BASOPHILS # (AUTO) 0.05 x10^3/uL (0-0.1); BASOPHILS % (AUTO) 1 % (0-1); EOSINOPHILS % (AUTO) 0 % (1-7); LYMPHOCYTES # (AUTO) 1.64 x10^3/uL (1-3.4); LYMPHOCYTES % (AUTO) 28 % (22-44); MD NO; MEAN CORPUSCULAR VOLUME 88.3 fL (80-100); MEAN PLATELET VOLUME 9.9 fL (7.4-10.4); MONOCYTES % (AUTO) 10 % (2-9); NEUTROPHILS # (AUTO) 3.58 x10^3/uL (1.8-6.8); NEUTROPHILS % (AUTO) 61 % (42-75); PLATELET COUNT 175 x10^3/uL (130-400); RED BLOOD COUNT 2.89 x10^6/uL (3.82-5.3); RED CELL DISTRIBUTION WIDTH 19.9 % (9.6-15.2)
[2017-09-13 05:44] LABS: CHLORIDE 112 mmol/L (98-107)
[2017-09-13 05:50] LABS: ALANINE AMINOTRANSFERASE 16 U/L (12-78); ALBUMIN 2.5 g/dL (3.4-5.0); ALKALINE PHOSPHATASE 65 U/L (45-117); ANION GAP 8 mmol/L (5-15); BILIRUBIN,TOTAL 0.6 mg/dL (0.2-1.0); CALCIUM 8.8 mg/dL (8.5-10.1); CREATININE 0.61 mg/dL (0.55-1.02); TOTAL PROTEIN 4.8 g/dL (6.4-8.2)
[2017-09-13] MEDS: CARVEDILOL 25 MG TABLET PO SCH ×2 (06:27→17:06)
[2017-09-13 07:22] VITALS: BP 163/74
[2017-09-13] MEDS ORDERED: POTASSIUM CHLORIDE 20 MEQ TAB.ER.PRT PO ONE ×2 (08:00→11:00)
[2017-09-13] MEDS: AMLODIPINE 5 MG TABLET PO SCH ×2 (08:23→20:29)
[2017-09-13] MEDS: LISINOPRIL 20 MG TABLET PO SCH ×2 (08:23→22:47)
[2017-09-13] MEDS: ALLOPURINOL 300 MG TABLET PO SCH ×2 (08:23→20:29)
[2017-09-13] MEDS: FOLIC ACID 1 MG TABLET PO SCH (08:24)
[2017-09-13] MEDS: OMEGA-3/FISH OIL CAPSULE PO SCH (08:24)
[2017-09-13] MEDS: POTASSIUM CHLORIDE 20 MEQ TAB.ER.PRT PO SCH (08:28)
[2017-09-13] MEDS ORDERED: POLYETHYLENE GLYCOL 17 GM PACKET NG PRN (15:30)
[2017-09-13 15:34] VITALS: BP 135/67
[2017-09-13 20:17] VITALS: BP 137/66
[2017-09-13] MEDS: MAGNESIUM OXIDE 400 MG TABLET PO SCH (20:29)
[2017-09-13] MEDS: SENNA/DOCUSATE TABLET PO SCH (20:29)
[2017-09-13] MEDS ORDERED: BISACODYL 5 MG EC TABLET PO PRN (20:30)
[2017-09-14 00:25] VITALS: BP 152/72
[2017-09-14] MEDS: SODIUM CHLORIDE 0.45% 1,000 ML IV SCH ×2 (02:54→09:08)
[2017-09-14] MEDS: CARVEDILOL 25 MG TABLET PO SCH (05:57)
[2017-09-14 07:46] VITALS: BP 156/70
[2017-09-14] MEDS ORDERED: POLYETHYLENE GLYCOL 17 GM PACKET PO ONE (08:30)
[2017-09-14] MEDS ORDERED: AMLO5TAB2 PO (08:31)
[2017-09-14] MEDS ORDERED: CARV25TA12 PO (08:31)
[2017-09-14] MEDS ORDERED: LISI-170 PO (08:31)
[2017-09-14] MEDS ORDERED: ALLO300T PO (08:31)
[2017-09-14] MEDS ORDERED: HYDR-3343 PO (08:31)
[2017-09-14] MEDS: LISINOPRIL 20 MG TABLET PO SCH (09:08)
[2017-09-14] MEDS: POTASSIUM CHLORIDE 20 MEQ TAB.ER.PRT PO SCH (09:08)
[2017-09-14] MEDS: FOLIC ACID 1 MG TABLET PO SCH (09:09)
[2017-09-14] MEDS: OMEGA-3/FISH OIL CAPSULE PO SCH (09:09)
[2017-09-14] MEDS: ALLOPURINOL 300 MG TABLET PO SCH (09:09)
[2017-09-14] MEDS: AMLODIPINE 5 MG TABLET PO SCH (09:09)
[2017-09-14] MEDS: SENNA/DOCUSATE TABLET PO SCH (09:10)
[2017-09-14 14:42] VITALS: BP 148/76
== END 2017-09-14 15:35 | disposition home or self-care (01) | DRG 840 ==
LOC: UNDOADMIN 11:52 → EDIP 11:52 → 3NW 12:13 → DCLOUNGE 09-14 15:11
PROVIDERS: ADMIT Internal Medicine Hematology & Oncology; ATTEND Hospitalist
PROC: 02HV33Z Insertion of Infusion Device into Superior Vena Cava, Percutaneous Approach (ICD-10-PCS; 2017-09-09)
PROC: B5181ZA Fluoroscopy of Superior Vena Cava using Low Osmolar Contrast, Guidance (ICD-10-PCS; 2017-09-09)
PROC: 30233N1 Transfusion of Nonautologous Red Blood Cells into Peripheral Vein, Percutaneous Approach (ICD-10-PCS; principal; 2017-09-11)
DX: C81.03 Nodular lymphocyte predominant Hodgkin lymphoma, intra-abdominal lymph nodes (principal); N17.0 Acute kidney failure with tubular necrosis; E43 Unspecified severe protein-calorie malnutrition; C18.9 Malignant neoplasm of colon, unspecified; I50.30 Unspecified diastolic (congestive) heart failure; K59.00 Constipation, unspecified; E83.52 Hypercalcemia; D64.9 Anemia, unspecified; E87.6 Hypokalemia; I11.9 Hypertensive heart disease without heart failure; Z87.891 Personal history of nicotine dependence; M06.9 Rheumatoid arthritis, unspecified; M21.379 Foot drop, unspecified foot; E61.1 Iron deficiency; E86.0 Dehydration; I11.0 Hypertensive heart disease with heart failure; I27.20 Pulmonary hypertension, unspecified; I35.8 Other nonrheumatic aortic valve disorders; R62.7 Adult failure to thrive; K21.9 Gastro-esophageal reflux disease without esophagitis; Z80.0 Family history of malignant neoplasm of digestive organs; Z79.899 Other long term (current) drug therapy; Z90.710 Acquired absence of both cervix and uterus; Z96.642 Presence of left artificial hip joint; Z68.22 Body mass index [BMI] 22.0-22.9, adult
CPT/HCPCS: 36415; 36569; 70553; 74018; 76937; 77001; 78306; 80053; 81001; 82306; 82310; 82330; 82397; 82607; 82652; 82728; 82746; 83540; 83550; 83735; 83970; 84100; 84439; 84443; 84550; 85025; 86705; 86706; 86803; 86850; 86900; 86923; 87040; 87086; 87324; 87340; 93306; A9585; J1453; J1940; J2405; J3480; J3490; J9000; J9070; A9503; C1751; C9898; J1200; J2430; J7030; J7050; J7120; J7512; J9310; J9370; P9016; S0028

== ENCOUNTER 2017-10-14 11:08 | Day surgery (SDC) | payer MEDICARE ==
[~2017-10-14] VITALS: Ht 162.6 cm; Wt 44.6 kg
[~2017-10-14 11:08] MED LIST changes: +ALLO300T PO; +CARV25TA12 PO; +HYDR-3343 PO; +LIDOCAINE-MPF 2%, 2ML ONE; +LISI-170 PO
[2017-10-14] MEDS ORDERED: SODIUM CHLORIDE 0.9% 1,000 ML IV SCH (12:21)
[2017-10-14] MEDS ORDERED: CEFAZOLIN PMX 1GM/50ML 50 ML IV ONE (12:30)
[2017-10-14 12:49] VITALS: BP 138/79
[2017-10-14] MEDS ORDERED: LIDOCAINE-MPF 2%, 2ML ONE (13:06)
[2017-10-14] MEDS ORDERED: FENTANYL PF 100 MCG/2ML ONE (13:09)
[2017-10-14] MEDS ORDERED: MIDAZOLAM 1 MG/ML, 5ML ONE ×2 (13:09)
[2017-10-14] MEDS ORDERED: FLUMAZENIL 0.1 MG/1 ML, 5ML ONE (13:10)
[2017-10-14] MEDS ORDERED: NALOXONE 1 MG/ML, 2ML ONE (13:10)
== END 2017-10-14 16:00 | disposition home or self-care (01) ==
LOC: OUT 11:08
PROVIDERS: ATTEND Internal Medicine Hematology & Oncology
DX: Z45.2 Encounter for adjustment and management of vascular access device (principal); C85.90 Non-Hodgkin lymphoma, unspecified, unspecified site; D64.9 Anemia, unspecified; K21.9 Gastro-esophageal reflux disease without esophagitis; E87.6 Hypokalemia; I11.0 Hypertensive heart disease with heart failure; I50.30 Unspecified diastolic (congestive) heart failure; I27.20 Pulmonary hypertension, unspecified; E66.9 Obesity, unspecified; Z87.39 Personal history of other diseases of the musculoskeletal system and connective tissue; Z90.710 Acquired absence of both cervix and uterus; Z98.890 Other specified postprocedural states; Z96.642 Presence of left artificial hip joint; Z87.891 Personal history of nicotine dependence; Z88.8 Allergy status to other drugs, medicaments and biological substances; Z85.038 Personal history of other malignant neoplasm of large intestine; Z68.22 Body mass index [BMI] 22.0-22.9, adult; Z79.899 Other long term (current) drug therapy
CPT/HCPCS: 36561; 77001; 99156; 99157; J0690; J1642; J2250; J3010; J3490; J7030; J2310

== ENCOUNTER 2017-12-21 11:37 | Inpatient (IN) | payer MEDICARE ==
[~2017-12-21] VITALS: Ht 160 cm; Wt 53.1 kg
[~2017-12-21 11:37] MED LIST changes: -AMLO5TAB2 PO; +AMLO5TAB7 PO; -LIDOCAINE-MPF 2%, 2ML ONE
[2017-12-21 12:23] VITALS: BP 119/64
[2017-12-21 13:07] LABS: INTERNATIONAL NORMALIZED RATIO 1.19 (0.93-1.1); PROTHROMBIN TIME 12.2 Seconds (9.6-11.5)
[2017-12-21 13:09] LABS: ANION GAP 7 mmol/L (5-15); CALCIUM 8.8 mg/dL (8.5-10.1); CHLORIDE 103 mmol/L (98-107); CREATININE 0.63 mg/dL (0.55-1.02)
[2017-12-21 13:10] LABS: ALANINE AMINOTRANSFERASE 16 U/L (12-78); ALBUMIN 2.8 g/dL (3.4-5.0)
[2017-12-21 13:11] LABS: ALKALINE PHOSPHATASE 84 U/L (45-117); BILIRUBIN,TOTAL 0.5 mg/dL (0.2-1.0); TOTAL PROTEIN 5.6 g/dL (6.4-8.2)
[2017-12-21 13:22] LABS: MD YES; MEAN CORPUSCULAR HEMOGLOBIN 28.9 pg (27.0-34.8); MEAN CORPUSCULAR VOLUME 84.8 fL (80-100); MEAN PLATELET VOLUME 8.1 fL (7.4-10.4); PLATELET COUNT 257 x10^3/uL (130-400); RED BLOOD COUNT 3.02 x10^6/uL (3.82-5.3); RED CELL DISTRIBUTION WIDTH 16.8 % (9.6-15.2)
[2017-12-21 14:02] LABS: BAND#(MANUAL) 0.05 x10^3/uL; BANDS%(MANUAL) 2 % (0-7); EOS#(MANUAL) 0.03 x10^3/uL (0.0-0.4); EOS% (MANUAL) 1 % (1-7)
[2017-12-21 14:03] LABS: LYMPH#(MANUAL) 0.57 x10^3/uL (1-3.4); LYMPHS% (MANUAL) 22 % (22-44); MONOS% (MANUAL) 23 % (2-9); SEG#(MANUAL) 1.35 x10^3/uL (1.8-6.8); SEGS% (MANUAL) 52 % (42-75)
[2017-12-21 14:14] LABS: ANISOCYTOSIS 1+
[2017-12-21 14:15] LABS: <PLATELET ESTIMATE> ADEQUATE; <PLT MORPHOLOGY> NORMAL PLT MORPH; OVALOCYTES 1+; POLYCHROMASIA 1+
[2017-12-21] MEDS: D5%-0.45% NACL 1,000 ML IV SCH (16:12)
[2017-12-21] MEDS ORDERED: THYR16.2 PO (16:26)
[2017-12-21 19:12] VITALS: BP 134/69
[2017-12-22] MEDS: D5%-0.45% NACL 1,000 ML IV SCH ×2 (02:06→09:46)
[2017-12-22 03:00] VITALS: BP 135/57
[2017-12-22 08:45] VITALS: BP 129/49
[2017-12-22] MEDS ORDERED: DILTIAZEM 5 MG/ML, 5ML IVPush ONE ×2 (09:30→10:00)
[2017-12-22] MEDS ORDERED: DILTIAZEM 125 MG in SODIUM CHLORIDE 0.9% 100 ML IV SCH (09:30)
[2017-12-22] MEDS ORDERED: METOPROLOL 1 MG/ML, 5ML ONE (09:39)
[2017-12-22] MEDS ORDERED: METOPROLOL 1 MG/ML, 5ML IVPush STA (09:39)
[2017-12-22] MEDS ORDERED: SODIUM CHLORIDE 0.9% 500 ML IV ONE (10:30)
[2017-12-22] MEDS ORDERED: METOPROLOL 1 MG/ML, 5ML IVPush ONE (10:30)
[2017-12-22 10:57] LABS: MEAN CORPUSCULAR HEMOGLOBIN 28.2 pg (27.0-34.8); MEAN CORPUSCULAR HGB CONC 33.4 g/dL (32.4-35.8); MEAN CORPUSCULAR VOLUME 84.3 fL (80-100); MEAN PLATELET VOLUME 8.9 fL (7.4-10.4); PLATELET COUNT 241 x10^3/uL (130-400); RED BLOOD COUNT 3.19 x10^6/uL (3.82-5.3); RED CELL DISTRIBUTION WIDTH 17.2 % (9.6-15.2)
[2017-12-22 11:26] LABS: MD YES
[2017-12-22 11:30] LABS: BAND#(MANUAL) 0.22 x10^3/uL; BANDS%(MANUAL) 9 % (0-7); EOS#(MANUAL) 0.02 x10^3/uL (0.0-0.4); EOS% (MANUAL) 1 % (1-7); LYMPH#(MANUAL) 0.62 x10^3/uL (1-3.4); LYMPHS% (MANUAL) 26 % (22-44); MONOS% (MANUAL) 29 % (2-9); REACTIVE LYMPHS # (MANUAL) 0.07 x10^3/uL (0-0); REACTIVE LYMPHS % (MANUAL) 3 % (0-0); SEG#(MANUAL) 0.77 x10^3/uL (1.8-6.8); SEGS% (MANUAL) 32 % (42-75)
[2017-12-22 11:31] LABS: <PLATELET ESTIMATE> ADEQUATE; <PLT MORPHOLOGY> NORMAL PLT MORPH; ANISOCYTOSIS 1+; OVALOCYTES 1+; POLYCHROMASIA 1+
[2017-12-22 12:02] VITALS: BP 113/70
[2017-12-22] MEDS: METOPROLOL TARTRATE 25 MG TABLET PO SCH ×3 (12:30→22:45)
[2017-12-22] MEDS ORDERED: METOPROLOL TARTRATE 25 MG TABLET PO ONE (12:30)
[2017-12-22] MEDS ORDERED: DIGOXIN 0.25 MG/ML, 2ML IVPush ONE (13:00)
[2017-12-22] MEDS ORDERED: AMIODARONE 300 MG in DEXTROSE 5% 100 ML IV ONE (13:30)
[2017-12-22] MEDS ORDERED: FILTER 0.22 MICRON IV ONE (13:30)
[2017-12-22] MEDS ORDERED: MAGNESIUM SULFATE PMX 2GM/50ML 50 ML IV ONE (13:30)
[2017-12-22 13:51] LABS: MICROSCOPIC AUTO
[2017-12-22 14:03] LABS: CULTURE INDICATED? NO
[2017-12-22] MEDS ORDERED: PROPOFOL 10 MG/ML, 20ML ONE (14:30)
[2017-12-22] MEDS ORDERED: ACETAMINOPHEN 325 MG TABLET ONE (14:48)
[2017-12-22] MEDS ORDERED: ACETAMINOPHEN 325 MG TABLET PO ONE ×2 (15:00)
[2017-12-22] MEDS ORDERED: FILTER 0.22 MICRON IV PRN (16:00)
[2017-12-22] MEDS ORDERED: AMIODARONE 900 MG in DEXTROSE 5% 482 ML IV PRN (16:00)
[2017-12-22 19:10] VITALS: BP 109/64
[2017-12-22] MEDS: PIPERACILLIN/TAZO/PMX 3.375GM 50 ML IV SCH ×2 (20:15→20:22)
[2017-12-22 22:33] VITALS: BP 139/64
[2017-12-23 01:22] VITALS: BP 107/60
[2017-12-23] MEDS: D5%-0.45% NACL 1,000 ML IV SCH ×3 (01:31→20:00)
[2017-12-23] MEDS: PIPERACILLIN/TAZO/PMX 3.375GM 50 ML IV SCH ×4 (01:32→20:00)
[2017-12-23 05:30] LABS: TROPONIN I < 0.015 ng/mL (0.000-0.045)
[2017-12-23 05:53] LABS: MEAN CORPUSCULAR HGB CONC 33.1 g/dL (32.4-35.8); MEAN CORPUSCULAR VOLUME 84.5 fL (80-100); MEAN PLATELET VOLUME 8.5 fL (7.4-10.4); PLATELET COUNT 217 x10^3/uL (130-400); RED BLOOD COUNT 2.82 x10^6/uL (3.82-5.3); RED CELL DISTRIBUTION WIDTH 17.2 % (9.6-15.2)
[2017-12-23 06:16] LABS: MD YES
[2017-12-23 06:20] LABS: BAND#(MANUAL) 0.04 x10^3/uL; BANDS%(MANUAL) 2 % (0-7); BASOS#(MANUAL) 0.02 x10^3/uL (0-0.1); BASOS% (MANUAL) 1 % (0-1); EOS#(MANUAL) 0.02 x10^3/uL (0.0-0.4); EOS% (MANUAL) 1 % (1-7); LYMPH#(MANUAL) 0.48 x10^3/uL (1-3.4); LYMPHS% (MANUAL) 22 % (22-44); MONOS#(MANUAL) 0.68 x10^3/uL (0.3-2.7); MONOS% (MANUAL) 31 % (2-9); REACTIVE LYMPHS # (MANUAL) 0.02 x10^3/uL (0-0); REACTIVE LYMPHS % (MANUAL) 1 % (0-0); SEG#(MANUAL) 0.92 x10^3/uL (1.8-6.8); SEGS% (MANUAL) 42 % (42-75)
[2017-12-23 06:22] LABS: ANISOCYTOSIS 1+; OVALOCYTES 1+; TEAR DROPS 1+
[2017-12-23 06:23] LABS: <PLATELET ESTIMATE> ADEQUATE; <PLT MORPHOLOGY> NORMAL PLT MORPH
[2017-12-23 06:59] VITALS: BP 138/66
[2017-12-23] MEDS: METOPROLOL TARTRATE 25 MG TABLET PO SCH (09:18)
[2017-12-23] MEDS: AMIODARONE 200 MG TABLET PO SCH ×2 (11:20→20:15)
[2017-12-23] MEDS: ACETAMINOPHEN 325 MG TABLET PO PRN (11:20)
[2017-12-23] MEDS ORDERED: POTASSIUM CHLORIDE 20 MEQ TAB.ER.PRT PO ONE (11:30)
[2017-12-23 12:39] VITALS: BP 137/74
[2017-12-23] MEDS: METOPROLOL TARTRATE 50 MG TABLET PO SCH (17:34)
[2017-12-23 19:15] VITALS: BP 170/77
[2017-12-23] MEDS: OXYcodone/APAP 5/325MG TABLET PO PRN (20:15)
[2017-12-23] MEDS: ONDANSETRON 2MG/ML, 2ML IVPush PRN (20:15)
[2017-12-23 21:16] VITALS: BP 146/64
[2017-12-24] VITALS (10 sets, daily range): BP systolic 113–163; BP diastolic 62–84
[2017-12-24] MEDS: PIPERACILLIN/TAZO/PMX 3.375GM 50 ML IV SCH ×2 (01:38→08:00)
[2017-12-24] MEDS: METOPROLOL TARTRATE 50 MG TABLET PO SCH ×2 (06:01→18:43)
[2017-12-24 07:13] LABS: MEAN CORPUSCULAR HEMOGLOBIN 27.7 pg (27.0-34.8); MEAN CORPUSCULAR VOLUME 83.8 fL (80-100); MEAN PLATELET VOLUME 8.5 fL (7.4-10.4); PLATELET COUNT 234 x10^3/uL (130-400); RED BLOOD COUNT 2.77 x10^6/uL (3.82-5.3); RED CELL DISTRIBUTION WIDTH 17.2 % (9.6-15.2)
[2017-12-24 07:25] LABS: MD YES
[2017-12-24 07:31] LABS: BAND#(MANUAL) 0.02 x10^3/uL; BANDS%(MANUAL) 1 % (0-7)
[2017-12-24 07:32] LABS: ANISOCYTOSIS 1+; LYMPH#(MANUAL) 0.46 x10^3/uL (1-3.4); LYMPHS% (MANUAL) 29 % (22-44); MONOS% (MANUAL) 31 % (2-9); OVALOCYTES 1+; SEG#(MANUAL) 0.62 x10^3/uL (1.8-6.8); SEGS% (MANUAL) 39 % (42-75)
[2017-12-24 07:33] LABS: <PLATELET ESTIMATE> ADEQUATE; <PLT MORPHOLOGY> NORMAL PLT MORPH; TEAR DROPS 1+
[2017-12-24] MEDS: AMIODARONE 200 MG TABLET PO SCH ×2 (09:08→20:47)
[2017-12-24] MEDS: D5%-0.45% NACL 1,000 ML IV SCH (09:09)
[2017-12-24] MEDS: OXYcodone/APAP 5/325MG TABLET PO PRN (10:44)
[2017-12-24] MEDS: CEFEPIME 1 GM in DEXTROSE 5% 50 ML IV SCH ×2 (12:00→20:54)
[2017-12-24] MEDS: SENNA/DOCUSATE TABLET PO SCH (12:08)
[2017-12-24 13:15] LABS: ALANINE AMINOTRANSFERASE 14 U/L (12-78); ALBUMIN 2.5 g/dL (3.4-5.0); ANION GAP 7 mmol/L (5-15); CALCIUM 8.2 mg/dL (8.5-10.1); CHLORIDE 107 mmol/L (98-107); CREATININE 0.64 mg/dL (0.55-1.02)
[2017-12-24 13:17] LABS: ALKALINE PHOSPHATASE 96 U/L (45-117); BILIRUBIN,TOTAL 0.5 mg/dL (0.2-1.0); TOTAL PROTEIN 5.5 g/dL (6.4-8.2)
[2017-12-24] MEDS: ACETAMINOPHEN 325 MG TABLET PO PRN (16:19)
[2017-12-24] MEDS ORDERED: OMNIPAQUE 350 MG/ML, 100ML BOTTLE ONE (17:12)
[2017-12-24] MEDS: POLYETHYLENE GLYCOL 17 GM PACKET PO PRN (18:43)
[2017-12-24 22:19] LABS: CULTURE INDICATED? YES; MICROSCOPIC AUTO
[2017-12-25 01:41] VITALS: BP 158/76
[2017-12-25] MEDS: ACETAMINOPHEN 325 MG TABLET PO PRN (01:49)
[2017-12-25] MEDS: CEFEPIME 1 GM in DEXTROSE 5% 50 ML IV SCH ×3 (05:07→20:22)
[2017-12-25 05:32] VITALS: BP 126/59
[2017-12-25] MEDS: METOPROLOL TARTRATE 50 MG TABLET PO SCH (05:39)
[2017-12-25 05:48] LABS: ALANINE AMINOTRANSFERASE 14 U/L (12-78); ALBUMIN 2.2 g/dL (3.4-5.0); ANION GAP 8 mmol/L (5-15); CALCIUM 8.5 mg/dL (8.5-10.1); CHLORIDE 109 mmol/L (98-107); CREATININE 0.54 mg/dL (0.55-1.02)
[2017-12-25 05:50] LABS: ALKALINE PHOSPHATASE 94 U/L (45-117); BILIRUBIN,TOTAL 0.5 mg/dL (0.2-1.0); TOTAL PROTEIN 4.9 g/dL (6.4-8.2)
[2017-12-25 06:18] LABS: MEAN CORPUSCULAR HEMOGLOBIN 27.7 pg (27.0-34.8); MEAN CORPUSCULAR VOLUME 83.8 fL (80-100); MEAN PLATELET VOLUME 8.7 fL (7.4-10.4); PLATELET COUNT 236 x10^3/uL (130-400); RED BLOOD COUNT 3.11 x10^6/uL (3.82-5.3); RED CELL DISTRIBUTION WIDTH 16.8 % (9.6-15.2)
[2017-12-25 07:13] LABS: MD YES
[2017-12-25 07:48] LABS: BANDS%(MANUAL) 4 % (0-7); BASOS#(MANUAL) 0.03 x10^3/uL (0-0.1); BASOS% (MANUAL) 1 % (0-1)
[2017-12-25 07:49] LABS: LYMPH#(MANUAL) 0.62 x10^3/uL (1-3.4); LYMPHS% (MANUAL) 24 % (22-44); MONOS#(MANUAL) 0.96 x10^3/uL (0.3-2.7); MONOS% (MANUAL) 37 % (2-9); SEG#(MANUAL) 0.88 x10^3/uL (1.8-6.8); SEGS% (MANUAL) 34 % (42-75)
[2017-12-25 07:50] LABS: ANISOCYTOSIS 1+
[2017-12-25 07:51] LABS: <PLATELET ESTIMATE> ADEQUATE; OVALOCYTES 1+; TEAR DROPS 1+
[2017-12-25 07:52] LABS: <PLT MORPHOLOGY> NORMAL PLT MORPH
[2017-12-25 08:10] VITALS: BP 151/80
[2017-12-25] MEDS: AMIODARONE 200 MG TABLET PO SCH ×2 (10:30→20:23)
[2017-12-25] MEDS: SENNA/DOCUSATE TABLET PO SCH (10:30)
[2017-12-25] MEDS: OXYcodone/APAP 5/325MG TABLET PO PRN ×2 (13:02→21:14)
[2017-12-25 13:19] VITALS: BP 156/72
[2017-12-25] MEDS ORDERED: CATHFLO-ALTEPLASE 2 MG/2 ML CATHFLUSH ONE ×2 (14:00→20:00)
[2017-12-25] MEDS: METOPROLOL TARTRATE 25 MG TABLET PO SCH (17:39)
[2017-12-25 20:39] VITALS: BP 170/82
[2017-12-26 01:31] VITALS: BP 129/63
[2017-12-26] MEDS: CEFEPIME 1 GM in DEXTROSE 5% 50 ML IV SCH ×3 (04:01→20:20)
[2017-12-26] MEDS: METOPROLOL TARTRATE 25 MG TABLET PO SCH ×2 (05:45→17:51)
[2017-12-26 05:54] LABS: MEAN CORPUSCULAR HGB CONC 33.4 g/dL (32.4-35.8); MEAN CORPUSCULAR VOLUME 83.8 fL (80-100); MEAN PLATELET VOLUME 8.5 fL (7.4-10.4); PLATELET COUNT 239 x10^3/uL (130-400); RED BLOOD COUNT 3.06 x10^6/uL (3.82-5.3); RED CELL DISTRIBUTION WIDTH 17.5 % (9.6-15.2)
[2017-12-26 06:02] LABS: ANION GAP 10 mmol/L (5-15); CALCIUM 8.2 mg/dL (8.5-10.1); CHLORIDE 106 mmol/L (98-107)
[2017-12-26 06:04] LABS: CREATININE 0.48 mg/dL (0.55-1.02)
[2017-12-26 06:18] LABS: MD YES
[2017-12-26 06:23] LABS: ANISOCYTOSIS 1+; BAND#(MANUAL) 0.02 x10^3/uL; BANDS%(MANUAL) 1 % (0-7); BASOS#(MANUAL) 0.02 x10^3/uL (0-0.1); BASOS% (MANUAL) 1 % (0-1); EOS#(MANUAL) 0.04 x10^3/uL (0.0-0.4); EOS% (MANUAL) 2 % (1-7); LYMPH#(MANUAL) 0.48 x10^3/uL (1-3.4); LYMPHS% (MANUAL) 24 % (22-44); MONOS#(MANUAL) 0.66 x10^3/uL (0.3-2.7); MONOS% (MANUAL) 33 % (2-9); SEG#(MANUAL) 0.78 x10^3/uL (1.8-6.8); SEGS% (MANUAL) 39 % (42-75)
[2017-12-26 06:24] LABS: <PLATELET ESTIMATE> ADEQUATE; <PLT MORPHOLOGY> NORMAL PLT MORPH; OVALOCYTES 1+; TEAR DROPS 1+
[2017-12-26 08:53] VITALS: BP 155/69
[2017-12-26] MEDS: AMIODARONE 200 MG TABLET PO SCH ×2 (09:27→20:20)
[2017-12-26] MEDS: SENNA/DOCUSATE TABLET PO SCH (09:28)
[2017-12-26] MEDS: POLYETHYLENE GLYCOL 17 GM PACKET PO PRN (09:28)
[2017-12-26] MEDS ORDERED: POTASSIUM CHLORIDE 10% 40 MEQ/30 ML UDC PO ONE (13:00)
[2017-12-26] MEDS ORDERED: MAGNESIUM SULFATE PMX 2GM/50ML 50 ML IV ONE (13:00)
[2017-12-26] MEDS ORDERED: POTASSIUM CHLORIDE 40 MEQ in SODIUM CHLORIDE 0.9% 100 ML IV ONE (13:00)
[2017-12-26 13:43] VITALS: BP 165/72
[2017-12-26 19:50] VITALS: BP 152/77
[2017-12-27 01:52] VITALS: BP 140/66
[2017-12-27] MEDS: CEFEPIME 1 GM in DEXTROSE 5% 50 ML IV SCH ×3 (03:55→20:21)
[2017-12-27] MEDS: METOPROLOL TARTRATE 25 MG TABLET PO SCH ×2 (05:51→18:28)
[2017-12-27 06:04] LABS: MEAN CORPUSCULAR HEMOGLOBIN 27.2 pg (27.0-34.8); MEAN CORPUSCULAR VOLUME 82.5 fL (80-100); MEAN PLATELET VOLUME 8.2 fL (7.4-10.4); PLATELET COUNT 275 x10^3/uL (130-400); RED BLOOD COUNT 3.34 x10^6/uL (3.82-5.3)
[2017-12-27 06:07] LABS: CHLORIDE 109 mmol/L (98-107)
[2017-12-27 06:19] LABS: ALANINE AMINOTRANSFERASE 12 U/L (12-78); ALBUMIN 2.1 g/dL (3.4-5.0); ALKALINE PHOSPHATASE 92 U/L (45-117); ANION GAP 8 mmol/L (5-15); BILIRUBIN,TOTAL 0.5 mg/dL (0.2-1.0); CALCIUM 8.3 mg/dL (8.5-10.1); CREATININE 0.45 mg/dL (0.55-1.02)
[2017-12-27 06:35] LABS: MD YES
[2017-12-27 06:51] LABS: <PLATELET ESTIMATE> ADEQUATE; <PLT MORPHOLOGY> NORMAL PLT MORPH; ANISOCYTOSIS 1+; BAND#(MANUAL) 0.01 x10^3/uL; BANDS%(MANUAL) 1 % (0-7); EOS#(MANUAL) 0.04 x10^3/uL (0.0-0.4); EOS% (MANUAL) 3 % (1-7); LYMPH#(MANUAL) 0.32 x10^3/uL (1-3.4); LYMPHS% (MANUAL) 23 % (22-44); MONOS#(MANUAL) 0.56 x10^3/uL (0.3-2.7); MONOS% (MANUAL) 40 % (2-9); OVALOCYTES 1+; REACTIVE LYMPHS # (MANUAL) 0.01 x10^3/uL (0-0); REACTIVE LYMPHS % (MANUAL) 1 % (0-0); SEG#(MANUAL) 0.45 x10^3/uL (1.8-6.8); SEGS% (MANUAL) 32 % (42-75); TEAR DROPS 1+
[2017-12-27 07:36] VITALS: BP 169/77
[2017-12-27] MEDS: AMIODARONE 200 MG TABLET PO SCH (09:10)
[2017-12-27] MEDS: SENNA/DOCUSATE TABLET PO SCH (09:10)
[2017-12-27] MEDS: LISINOPRIL 10 MG TABLET PO SCH (11:51)
[2017-12-27] MEDS ORDERED: TBO-FILGRASTIM 480 MCG/0.8 ML SQ ONE (12:30)
[2017-12-27 12:57] VITALS: BP 146/70
[2017-12-27] MEDS: FLUCONAZOLE 200 MG TABLET PO SCH (18:28)
[2017-12-27 18:29] VITALS: BP 137/75
[2017-12-27 19:12] VITALS: BP 147/78
[2017-12-28 01:26] VITALS: BP 139/68
[2017-12-28] MEDS: CEFEPIME 1 GM in DEXTROSE 5% 50 ML IV SCH ×3 (03:50→20:38)
[2017-12-28] MEDS: THYROID HOMEMEDPO SCH ×2 (06:00→09:00)
[2017-12-28] MEDS: METOPROLOL TARTRATE 25 MG TABLET PO SCH ×2 (06:02→17:35)
[2017-12-28 06:41] LABS: MEAN CORPUSCULAR HEMOGLOBIN 27.8 pg (27.0-34.8); MEAN CORPUSCULAR HGB CONC 33.6 g/dL (32.4-35.8); MEAN CORPUSCULAR VOLUME 82.7 fL (80-100); MEAN PLATELET VOLUME 8.5 fL (7.4-10.4); PLATELET COUNT 291 x10^3/uL (130-400); RED BLOOD COUNT 3.51 x10^6/uL (3.82-5.3); RED CELL DISTRIBUTION WIDTH 17.5 % (9.6-15.2)
[2017-12-28 07:21] VITALS: BP 161/72
[2017-12-28 07:31] LABS: MD YES
[2017-12-28 07:35] LABS: ANISOCYTOSIS 1+; BAND#(MANUAL) 0.61 x10^3/uL; BANDS%(MANUAL) 10 % (0-7); LYMPH#(MANUAL) 0.85 x10^3/uL (1-3.4); LYMPHS% (MANUAL) 14 % (22-44); METAMYELOCYTES# (MANUAL) 0.12 x10^3/uL (0-0); METAMYELOCYTES% (MANUAL) 2 % (0-1); MONOS#(MANUAL) 0.67 x10^3/uL (0.3-2.7); MONOS% (MANUAL) 11 % (2-9); OVALOCYTES 1+; SEG#(MANUAL) 3.84 x10^3/uL (1.8-6.8); SEGS% (MANUAL) 63 % (42-75); TEAR DROPS 1+
[2017-12-28 07:36] LABS: <PLATELET ESTIMATE> ADEQUATE; <PLT MORPHOLOGY> NORMAL PLT MORPH
[2017-12-28] MEDS: SENNA/DOCUSATE TABLET PO SCH (09:04)
[2017-12-28] MEDS: FERROUS SULFATE 325 MG TABLET PO SCH ×2 (09:04→20:38)
[2017-12-28] MEDS: AMIODARONE 200 MG TABLET PO SCH (09:05)
[2017-12-28] MEDS: LISINOPRIL 10 MG TABLET PO SCH (09:05)
[2017-12-28] MEDS: OXYcodone/APAP 5/325MG TABLET PO PRN ×2 (09:33→18:23)
[2017-12-28] MEDS: TBO-FILGRASTIM 480 MCG/0.8 ML SQ SCH (12:42)
[2017-12-28 13:26] VITALS: BP 169/98
[2017-12-28] MEDS: ONDANSETRON 2MG/ML, 2ML IVPush PRN ×2 (13:58→20:38)
[2017-12-28] MEDS: FLUCONAZOLE 200 MG TABLET PO SCH (17:35)
[2017-12-28] MEDS: PROMETHAZINE 25 MG/ML, 1ML IM PRN ×2 (17:36→23:58)
[2017-12-28 19:14] VITALS: BP 160/72
[2017-12-28] MEDS ORDERED: GOLYTELY 4,000ML ORAL.SOL PO ONE (20:00)
[2017-12-29 01:09] VITALS: BP 148/73
[2017-12-29] MEDS: CEFEPIME 1 GM in DEXTROSE 5% 50 ML IV SCH ×3 (03:37→19:50)
[2017-12-29] MEDS: THYROID HOMEMEDPO SCH (05:18)
[2017-12-29] MEDS: METOPROLOL TARTRATE 25 MG TABLET PO SCH ×2 (05:18→18:24)
[2017-12-29 05:35] LABS: MEAN CORPUSCULAR HEMOGLOBIN 27.6 pg (27.0-34.8); MEAN CORPUSCULAR HGB CONC 33.2 g/dL (32.4-35.8); MEAN CORPUSCULAR VOLUME 83.1 fL (80-100); MEAN PLATELET VOLUME 8.2 fL (7.4-10.4); PLATELET COUNT 244 x10^3/uL (130-400); RED BLOOD COUNT 3.39 x10^6/uL (3.82-5.3); RED CELL DISTRIBUTION WIDTH 17.8 % (9.6-15.2)
[2017-12-29 05:53] LABS: MD YES
[2017-12-29 06:01] LABS: ANION GAP 10 mmol/L (5-15); BAND#(MANUAL) 0.73 x10^3/uL; BANDS%(MANUAL) 10 % (0-7); CALCIUM 8.5 mg/dL (8.5-10.1); CHLORIDE 105 mmol/L (98-107); CREATININE 0.53 mg/dL (0.55-1.02); LYMPH#(MANUAL) 0.44 x10^3/uL (1-3.4); LYMPHS% (MANUAL) 6 % (22-44); MONOS% (MANUAL) 15 % (2-9); SEG#(MANUAL) 5.04 x10^3/uL (1.8-6.8); SEGS% (MANUAL) 69 % (42-75)
[2017-12-29 06:04] LABS: ANISOCYTOSIS 1+
[2017-12-29 06:05] LABS: OVALOCYTES 1+
[2017-12-29 06:06] LABS: <PLATELET ESTIMATE> ADEQUATE; <PLT MORPHOLOGY> NORMAL PLT MORPH
[2017-12-29 07:40] VITALS: BP 172/70
[2017-12-29] MEDS ORDERED: MAGNESIUM SULFATE PMX 2GM/50ML 50 ML IV ONE (08:30)
[2017-12-29] MEDS: TBO-FILGRASTIM 480 MCG/0.8 ML SQ SCH (09:00)
[2017-12-29] MEDS: SENNA/DOCUSATE TABLET PO SCH (09:00)
[2017-12-29] MEDS ORDERED: PROPOFOL 10 MG/ML, 20ML ONE (09:03)
[2017-12-29] MEDS ORDERED: ONDANSETRON 2MG/ML, 2ML IV PRN (10:00)
[2017-12-29] MEDS ORDERED: PROMETHAZINE 12.5 MG SUPP PR PRN (10:00)
[2017-12-29] MEDS ORDERED: hydrALAzine 20 MG/ML, 1ML IV PRN (10:00)
[2017-12-29] MEDS ORDERED: LABETALOL 5MG/ML, 20ML IV PRN (10:00)
[2017-12-29] MEDS ORDERED: HYDROmorphone 1 MG/ML, 1ML IV PRN (10:00)
[2017-12-29] MEDS ORDERED: MEPERIDINE/PF 25MG/0.5ML IVPush PRN (10:00)
[2017-12-29] MEDS ORDERED: OXYcodone 5 MG/5 ML ORAL.SOL UDC PO PRN (10:00)
[2017-12-29] MEDS ORDERED: ONDANSETRON ODT 8 MG PO PRN (10:00)
[2017-12-29] MEDS ORDERED: HALOPERIDOL 5 MG/ML IV PRN (10:00)
[2017-12-29] MEDS ORDERED: PROMETHAZINE 25 MG/ML, 1ML IV PRN (10:00)
[2017-12-29] MEDS ORDERED: LORazepam 2 MG/ML, 1ML IVPush PRN (10:00)
[2017-12-29] MEDS ORDERED: EPHEDRINE 50 MG/ML, 1ML IVPush PRN (10:00)
[2017-12-29] MEDS ORDERED: FENTANYL PF 100 MCG/2ML IV PRN (10:00)
[2017-12-29] MEDS ORDERED: MORPHINE SULFATE 4 MG/ML, 1ML IVPush PRN (10:00)
[2017-12-29] MEDS ORDERED: MIDAZOLAM 1 MG/ML, 2ML IV PRN (10:00)
[2017-12-29] MEDS ORDERED: ALBUTEROL SULFATE 2.5 MG/3 ML NPPB PRN (10:00)
[2017-12-29] MEDS: FERROUS SULFATE 325 MG TABLET PO SCH ×2 (12:08→19:50)
[2017-12-29] MEDS: LISINOPRIL 10 MG TABLET PO SCH (12:09)
[2017-12-29] MEDS: AMIODARONE 200 MG TABLET PO SCH (12:10)
[2017-12-29 12:35] VITALS: BP 164/71
[2017-12-29] MEDS ORDERED: TBO-FILGRASTIM 480 MCG/0.8 ML SQ ONE (14:00)
[2017-12-29] MEDS: FLUCONAZOLE 200 MG TABLET PO SCH (18:26)
[2017-12-29 19:30] VITALS: BP 161/67
[2017-12-30 02:50] VITALS: BP 181/75
[2017-12-30 03:11] VITALS: BP 177/73
[2017-12-30] MEDS ORDERED: hydrALAzine 20 MG/ML, 1ML IVPush ONE (04:00)
[2017-12-30 04:12] VITALS: BP 147/76
[2017-12-30] MEDS: CEFEPIME 1 GM in DEXTROSE 5% 50 ML IV SCH ×2 (04:15→12:00)
[2017-12-30] MEDS: METOPROLOL TARTRATE 25 MG TABLET PO SCH (05:04)
[2017-12-30] MEDS: THYROID HOMEMEDPO SCH (05:07)
[2017-12-30 05:44] LABS: ANION GAP 8 mmol/L (5-15); CALCIUM 8.8 mg/dL (8.5-10.1); CHLORIDE 108 mmol/L (98-107); CREATININE 0.55 mg/dL (0.55-1.02)
[2017-12-30 06:03] LABS: MEAN CORPUSCULAR HEMOGLOBIN 27.1 pg (27.0-34.8); MEAN CORPUSCULAR HGB CONC 32.4 g/dL (32.4-35.8); MEAN CORPUSCULAR VOLUME 83.8 fL (80-100); MEAN PLATELET VOLUME 8.7 fL (7.4-10.4); PLATELET COUNT 286 x10^3/uL (130-400); RED BLOOD COUNT 3.62 x10^6/uL (3.82-5.3); RED CELL DISTRIBUTION WIDTH 18.4 % (9.6-15.2)
[2017-12-30 06:25] LABS: MD YES
[2017-12-30 06:29] LABS: ANISOCYTOSIS 1+; BAND#(MANUAL) 1.24 x10^3/uL; BANDS%(MANUAL) 8 % (0-7); LYMPH#(MANUAL) 0.93 x10^3/uL (1-3.4); LYMPHS% (MANUAL) 6 % (22-44); MONOS#(MANUAL) 1.71 x10^3/uL (0.3-2.7); MONOS% (MANUAL) 11 % (2-9); OVALOCYTES 1+; SEG#(MANUAL) 11.63 x10^3/uL (1.8-6.8); SEGS% (MANUAL) 75 % (42-75); TEAR DROPS 1+
[2017-12-30 06:30] LABS: <PLATELET ESTIMATE> ADEQUATE; <PLT MORPHOLOGY> NORMAL PLT MORPH
[2017-12-30 07:37] VITALS: BP 160/65
[2017-12-30] MEDS: FERROUS SULFATE 325 MG TABLET PO SCH (08:46)
[2017-12-30] MEDS: TBO-FILGRASTIM 480 MCG/0.8 ML SQ SCH (08:46)
[2017-12-30] MEDS: SENNA/DOCUSATE TABLET PO SCH (08:46)
[2017-12-30] MEDS: AMIODARONE 200 MG TABLET PO SCH (08:46)
[2017-12-30] MEDS: LISINOPRIL 10 MG TABLET PO SCH (08:46)
[2017-12-30 13:45] VITALS: BP 165/78
[2017-12-30] MEDS ORDERED: METO25TA35 PO (14:02)
[2017-12-30] MEDS ORDERED: LISI-167 PO (14:02)
[2017-12-30] MEDS ORDERED: FERR-51 PO (14:02)
[2017-12-30] MEDS ORDERED: AMIO200T42 PO (14:02)
[2017-12-30] MEDS ORDERED: ONDANSETRON ODT 4 MG ONE (17:58)
== END 2017-12-30 18:18 | disposition home or self-care (01) | DRG 840 ==
LOC: 3NW 11:37 → 5SO 12-22 09:19 → 3NW 12-24 16:53
PROVIDERS: ADMIT Internal Medicine; ATTEND Family Medicine
PROC: 02HV33Z Insertion of Infusion Device into Superior Vena Cava, Percutaneous Approach (ICD-10-PCS; 2017-12-22)
PROC: 5A2204Z Restoration of Cardiac Rhythm, Single (ICD-10-PCS; 2017-12-22)
PROC: 30233N1 Transfusion of Nonautologous Red Blood Cells into Peripheral Vein, Percutaneous Approach (ICD-10-PCS; principal; 2017-12-24)
PROC: 0DJD8ZZ Inspection of Lower Intestinal Tract, Via Natural or Artificial Opening Endoscopic (ICD-10-PCS; 2017-12-29)
DX: C81.00 Nodular lymphocyte predominant Hodgkin lymphoma, unspecified site (principal); E43 Unspecified severe protein-calorie malnutrition; K57.31 Diverticulosis of large intestine without perforation or abscess with bleeding; C18.9 Malignant neoplasm of colon, unspecified; D68.59 Other primary thrombophilia; N28.1 Cyst of kidney, acquired; D70.9 Neutropenia, unspecified; R50.81 Fever presenting with conditions classified elsewhere; D63.0 Anemia in neoplastic disease; D50.9 Iron deficiency anemia, unspecified; I11.9 Hypertensive heart disease without heart failure; I48.0 Paroxysmal atrial fibrillation; K21.9 Gastro-esophageal reflux disease without esophagitis; K59.00 Constipation, unspecified; M06.9 Rheumatoid arthritis, unspecified; M21.371 Foot drop, right foot; Z96.642 Presence of left artificial hip joint; Z51.5 Encounter for palliative care; Z80.0 Family history of malignant neoplasm of digestive organs; Z85.038 Personal history of other malignant neoplasm of large intestine; Z87.891 Personal history of nicotine dependence; Z86.61 Personal history of infections of the central nervous system; Z90.710 Acquired absence of both cervix and uterus; Z92.21 Personal history of antineoplastic chemotherapy; Z68.20 Body mass index [BMI] 20.0-20.9, adult
CPT/HCPCS: 36415; 71045; 71260; 74018; 74022; 74177; 78278; 80048; 80053; 81001; 83735; 83880; 84100; 84145; 84484; 85025; 85610; 85730; 86850; 86900; 86923; 87040; 87086; 92960; 93005; 93306; G0378; J0692; J2405; J2543; J2550; J2704; J2997; J3480; Q9967; A9560; C9898; J0282; J1160; J1447; J3475; J7060; P9040

== ENCOUNTER 2018-01-17 16:04 | Emergency (ER) | payer MEDICARE ==
[~2018-01-17 16:04] MED LIST changes: +AMIO200T42 PO; +FERR-51 PO; +LISI-167 PO; +METO25TA35 PO
[2018-01-17] MEDS ORDERED: SODIUM CHLORIDE FLUSH 10ML SYR IVF ONE (17:00)
[2018-01-17 17:01] LABS: BASOPHILS # (AUTO) 0.02 x10^3/uL (0-0.1); BASOPHILS % (AUTO) 0 % (0-1); EOSINOPHILS % (AUTO) 2 % (1-7); LYMPHOCYTES # (AUTO) 0.76 x10^3/uL (1-3.4); LYMPHOCYTES % (AUTO) 17 % (22-44); MD NO; MEAN CORPUSCULAR HEMOGLOBIN 26.6 pg (27.0-34.8); MEAN CORPUSCULAR HGB CONC 33.5 g/dL (32.4-35.8); MEAN CORPUSCULAR VOLUME 79.4 fL (80-100); MEAN PLATELET VOLUME 8.5 fL (7.4-10.4); MONOCYTES # (AUTO) 0.66 x10^3/uL (0.2-0.8); MONOCYTES % (AUTO) 15 % (2-9); NEUTROPHILS % (AUTO) 66 % (42-75); PLATELET COUNT 316 x10^3/uL (130-400); RED BLOOD COUNT 3.49 x10^6/uL (3.82-5.3); RED CELL DISTRIBUTION WIDTH 19.6 % (9.6-15.2)
[2018-01-17 17:11] LABS: ALBUMIN 2.6 g/dL (3.4-5.0); ANION GAP 10 mmol/L (5-15); CALCIUM 8.6 mg/dL (8.5-10.1); CHLORIDE 100 mmol/L (98-107)
[2018-01-17 17:14] LABS: ALANINE AMINOTRANSFERASE 17 U/L (12-78); ALKALINE PHOSPHATASE 107 U/L (45-117); BILIRUBIN,TOTAL 0.4 mg/dL (0.2-1.0); CREATININE 0.61 mg/dL (0.55-1.02); TOTAL PROTEIN 5.7 g/dL (6.4-8.2)
[2018-01-17 17:58] VITALS: BP 124/84
[2018-01-17 19:13] LABS: CULTURE INDICATED? YES; MICROSCOPIC INDICATED
== END 2018-01-17 21:12 | disposition home or self-care (01) ==
LOC: ED 19:47
DX: K59.00 Constipation, unspecified (principal); Z87.891 Personal history of nicotine dependence; Z85.038 Personal history of other malignant neoplasm of large intestine
CPT/HCPCS: 36415; 74022; 74176; 80053; 81001; 83690; 85025; 87086; 93005; 99284

== ENCOUNTER 2018-02-17 06:10 | Inpatient (IN) | payer MEDICARE ==
[~2018-02-17] VITALS: Ht 154.9 cm; Wt 35.1 kg
[~2018-02-17 06:10] MED LIST changes: +AMLO-150 PO; -AMLO5TAB7 PO; +METR-90 PO; -METR500T8 PO
[2018-02-17] MEDS ORDERED: LACTATED RINGERS 1,000 ML IV SCH (06:34)
[2018-02-17 06:36] VITALS: BP 101/70
[2018-02-17 06:48] VITALS: BP 101/70
[2018-02-17] MEDS ORDERED: BUPIVACAINE/PF-EPI 0.5% 1:200K ONE (06:49)
[2018-02-17] MEDS ORDERED: PROPOFOL 10 MG/ML, 20ML ONE ×2 (06:53→07:40)
[2018-02-17] MEDS ORDERED: FENTANYL PF 100 MCG/2ML ONE (06:53)
[2018-02-17] MEDS ORDERED: DEXAMETHASONE 4 MG/ML, 1ML ONE ×2 (06:53)
[2018-02-17] MEDS ORDERED: MIDAZOLAM 1 MG/ML, 2ML ONE (06:53)
[2018-02-17] MEDS ORDERED: ROCURONIUM 10MG/ML,5ML ONE (06:54)
[2018-02-17] MEDS ORDERED: SUCCINYLCHOLINE 20 MG/ML, 10ML ONE (06:54)
[2018-02-17] MEDS ORDERED: MORPHINE SULFATE 4 MG/ML, 1ML IVPush PRN ×2 (07:30→14:30)
[2018-02-17] MEDS ORDERED: FENTANYL PF 100 MCG/2ML IV PRN (07:30)
[2018-02-17] MEDS ORDERED: METOCLOPRAMIDE 5 MG/ML, 2ML IV PRN (07:30)
[2018-02-17] MEDS ORDERED: OXYcodone 5 MG/5 ML ORAL.SOL UDC PO PRN (07:30)
[2018-02-17] MEDS ORDERED: LABETALOL 5MG/ML, 20ML IV PRN (07:30)
[2018-02-17] MEDS ORDERED: LORazepam 2 MG/ML, 1ML IVPush PRN ×2 (07:30→14:30)
[2018-02-17] MEDS ORDERED: MEPERIDINE/PF 25MG/0.5ML IVPush PRN (07:30)
[2018-02-17] MEDS ORDERED: DIPHENHYDRAMINE 50 MG/ML, 1ML IVPush PRN ×2 (07:30→14:30)
[2018-02-17] MEDS ORDERED: hydrALAzine 20 MG/ML, 1ML IV PRN (07:30)
[2018-02-17] MEDS ORDERED: KETOROLAC 30 MG/1 ML ONE (07:40)
[2018-02-17] MEDS ORDERED: GLYCOPYRROLATE 0.2MG/1ML, 5ML ONE (07:40)
[2018-02-17] MEDS ORDERED: CEFOTETAN 1 GM ONE (07:40)
[2018-02-17] MEDS ORDERED: NEOSTIGMINE 1 MG/ML, 10ML ONE (07:40)
[2018-02-17] MEDS ORDERED: LABETALOL 20 MG/4 ML ONE (07:40)
[2018-02-17] MEDS ORDERED: LIDOCAINE-MPF 2% ,5ML ONE (07:40)
[2018-02-17] MEDS ORDERED: BUPIVACAINE/PF-EPI 0.5% 1:200K INFIL ONE (08:23)
[2018-02-17] MEDS ORDERED: ACETAMINOPHEN 325 MG TABLET PO PRN (09:00)
[2018-02-17] MEDS ORDERED: OXYcodone 5 MG/5 ML ORAL.SOL UDC ONE (10:05)
[2018-02-17 11:00] VITALS: BP 112/62
[2018-02-17] MEDS ORDERED: LORazepam 1MG TABLET PO PRN (14:30)
[2018-02-17] MEDS ORDERED: TRAZODONE 50MG TABLET PO PRN (14:30)
[2018-02-17] MEDS ORDERED: CALCIUM CARBONATE 500 MG TAB.CHEW PO PRN (14:30)
[2018-02-17] MEDS ORDERED: DEXAMETHASONE 4 MG/ML, 1ML IVPush PRN (14:30)
[2018-02-17] MEDS ORDERED: DIPHENHYDRAMINE 25 MG CAPSULE PO PRN (14:30)
[2018-02-17] MEDS ORDERED: HALOPERIDOL 5 MG/ML IVPush PRN (14:30)
[2018-02-17] MEDS ORDERED: ONDANSETRON 2MG/ML, 2ML IV PRN (14:30)
[2018-02-17] MEDS ORDERED: ENOXAPARIN 40 MG/0.4 ML SQ SCH (14:30)
[2018-02-17] MEDS ORDERED: SCOPOLAMINE PATCH, 1.5MG PATCH.TD72 TD PRN (14:30)
[2018-02-17] MEDS ORDERED: OXYcodone IR 5MG TABLET PO PRN (14:30)
[2018-02-17] MEDS: LACTATED RINGERS 1,000 ML IV SCH (15:15)
[2018-02-17] MEDS: ACETAMINOPHEN 500 MG TABLET PO SCH ×2 (15:16→20:07)
[2018-02-17] MEDS: KETOROLAC 30 MG/1 ML IVPush SCH ×2 (15:16→20:07)
[2018-02-17 19:23] VITALS: BP 104/58
[2018-02-17 23:33] VITALS: BP 118/92
[2018-02-18] MEDS ORDERED: MORPHINE SULFATE 4 MG/ML, 1ML IVPush PRN (02:00)
[2018-02-18] MEDS ORDERED: OXYcodone IR 5MG TABLET PO PRN (02:00)
[2018-02-18] MEDS: KETOROLAC 30 MG/1 ML IVPush SCH ×4 (02:44→20:54)
[2018-02-18] MEDS: ACETAMINOPHEN 500 MG TABLET PO SCH ×4 (02:44→20:54)
[2018-02-18 04:09] VITALS: BP 160/71
[2018-02-18 05:55] LABS: MEAN CORPUSCULAR HEMOGLOBIN 26.1 pg (27.0-34.8); MEAN CORPUSCULAR HGB CONC 32.7 g/dL (32.4-35.8); MEAN CORPUSCULAR VOLUME 79.9 fL (80-100); MEAN PLATELET VOLUME 8.6 fL (7.4-10.4); PLATELET COUNT 294 x10^3/uL (130-400); RED BLOOD COUNT 3.09 x10^6/uL (3.82-5.3); RED CELL DISTRIBUTION WIDTH 19.1 % (9.6-15.2)
[2018-02-18 06:11] LABS: ANION GAP 8 mmol/L (5-15); CALCIUM 8.2 mg/dL (8.5-10.1); CHLORIDE 102 mmol/L (98-107); CREATININE 1.18 mg/dL (0.55-1.02)
[2018-02-18 06:31] LABS: BASOPHILS # (AUTO) 0.01 x10^3/uL (0-0.1); BASOPHILS % (AUTO) 0 % (0-1); EOSINOPHILS # (AUTO) 0.02 x10^3/uL (0-0.4); EOSINOPHILS % (AUTO) 1 % (1-7); LYMPHOCYTES # (AUTO) 0.59 x10^3/uL (1-3.4); LYMPHOCYTES % (AUTO) 24 % (22-44); MD SCAN; MONOCYTES # (AUTO) 0.44 x10^3/uL (0.2-0.8); MONOCYTES % (AUTO) 18 % (2-9); NEUTROPHILS # (AUTO) 1.38 x10^3/uL (1.8-6.8); NEUTROPHILS % (AUTO) 57 % (42-75)
[2018-02-18 08:17] VITALS: BP 179/76
[2018-02-18] MEDS: LACTATED RINGERS 1,000 ML IV SCH (08:25)
[2018-02-18 13:27] VITALS: BP 119/62
[2018-02-18] MEDS: ENOXAPARIN 30 MG/0.3 ML SQ SCH (14:33)
[2018-02-18 19:22] VITALS: BP 127/69
[2018-02-18] MEDS: SODIUM CHLORIDE FLUSH 3ML SYRINGE IVF SCH (20:43)
[2018-02-19] VITALS (10 sets, daily range): BP systolic 126–167; BP diastolic 69–74
[2018-02-19] MEDS: KETOROLAC 30 MG/1 ML IVPush SCH ×4 (02:30→22:33)
[2018-02-19] MEDS: ACETAMINOPHEN 500 MG TABLET PO SCH ×4 (02:30→22:36)
[2018-02-19 05:39] LABS: ANION GAP 7 mmol/L (5-15); CALCIUM 8.3 mg/dL (8.5-10.1); CHLORIDE 104 mmol/L (98-107)
[2018-02-19 05:41] LABS: CREATININE 0.69 mg/dL (0.55-1.02)
[2018-02-19 05:51] LABS: MEAN CORPUSCULAR HGB CONC 33.5 g/dL (32.4-35.8); MEAN CORPUSCULAR VOLUME 80.4 fL (80-100); MEAN PLATELET VOLUME 8.6 fL (7.4-10.4); PLATELET COUNT 244 x10^3/uL (130-400); RED BLOOD COUNT 2.83 x10^6/uL (3.82-5.3); RED CELL DISTRIBUTION WIDTH 19.1 % (9.6-15.2)
[2018-02-19 06:34] LABS: ANISOCYTOSIS 1+; BASOPHILS # (AUTO) 0.01 x10^3/uL (0-0.1); BASOPHILS % (AUTO) 1 % (0-1); EOSINOPHILS # (AUTO) 0.03 x10^3/uL (0-0.4); EOSINOPHILS % (AUTO) 1 % (1-7); LYMPHOCYTES # (AUTO) 0.48 x10^3/uL (1-3.4); LYMPHOCYTES % (AUTO) 17 % (22-44); MD MORPH REVIEW ONLY; MICROCYTOSIS 1+; MONOCYTES # (AUTO) 0.45 x10^3/uL (0.2-0.8); MONOCYTES % (AUTO) 16 % (2-9); NEUTROPHILS # (AUTO) 1.92 x10^3/uL (1.8-6.8); NEUTROPHILS % (AUTO) 67 % (42-75)
[2018-02-19 06:35] LABS: OVALOCYTES 1+
[2018-02-19 06:36] LABS: <PLATELET ESTIMATE> ADEQUATE; <PLT MORPHOLOGY> NORMAL PLT MORPH
[2018-02-19] MEDS: SODIUM CHLORIDE FLUSH 3ML SYRINGE IVF SCH ×2 (08:57→21:00)
[2018-02-19] MEDS: ENOXAPARIN 30 MG/0.3 ML SQ SCH (15:13)
[2018-02-20 00:52] VITALS: BP 147/93
[2018-02-20] MEDS: KETOROLAC 30 MG/1 ML IVPush SCH ×2 (04:43→11:37)
[2018-02-20] MEDS: ACETAMINOPHEN 500 MG TABLET PO SCH ×2 (04:43→11:00)
[2018-02-20 05:22] LABS: MEAN CORPUSCULAR HEMOGLOBIN 28.3 pg (27.0-34.8); MEAN CORPUSCULAR HGB CONC 33.8 g/dL (32.4-35.8); MEAN CORPUSCULAR VOLUME 83.8 fL (80-100); MEAN PLATELET VOLUME 8.3 fL (7.4-10.4); PLATELET COUNT 285 x10^3/uL (130-400); RED BLOOD COUNT 3.94 x10^6/uL (3.82-5.3); RED CELL DISTRIBUTION WIDTH 18.1 % (9.6-15.2)
[2018-02-20 05:27] LABS: ANION GAP 5 mmol/L (5-15); CALCIUM 8.7 mg/dL (8.5-10.1); CHLORIDE 109 mmol/L (98-107)
[2018-02-20 05:30] LABS: CREATININE 0.62 mg/dL (0.55-1.02)
[2018-02-20 06:09] LABS: MD YES
[2018-02-20 06:13] LABS: BAND#(MANUAL) 0.05 x10^3/uL; BANDS%(MANUAL) 2 % (0-7); LYMPH#(MANUAL) 0.76 x10^3/uL (1-3.4); LYMPHS% (MANUAL) 33 % (22-44); MONOS#(MANUAL) 0.32 x10^3/uL (0.3-2.7); MONOS% (MANUAL) 14 % (2-9); REACTIVE LYMPHS # (MANUAL) 0.05 x10^3/uL (0-0); REACTIVE LYMPHS % (MANUAL) 2 % (0-0); SEG#(MANUAL) 1.13 x10^3/uL (1.8-6.8); SEGS% (MANUAL) 49 % (42-75)
[2018-02-20 06:15] LABS: ANISOCYTOSIS 1+; OVALOCYTES 1+; POLYCHROMASIA 1+; SCHISTOCYTES 1+
[2018-02-20 06:16] LABS: <PLATELET ESTIMATE> ADEQUATE; <PLT MORPHOLOGY> NORMAL PLT MORPH
[2018-02-20 06:17] LABS: ECHINOCYTES 1+
[2018-02-20 07:01] VITALS: BP 146/80
[2018-02-20] MEDS: SODIUM CHLORIDE FLUSH 3ML SYRINGE IVF SCH (09:00)
[2018-02-20] MEDS ORDERED: IBUP-1222 PO (11:16)
[2018-02-20] MEDS ORDERED: OXYC-302 PO (11:17)
== END 2018-02-20 12:40 | disposition home or self-care (01) | DRG 329 ==
LOC: ORIP 06:10 → 4NOR 10:45
PROVIDERS: ADMIT Colon & Rectal Surgery; ATTEND Colon & Rectal Surgery
PROC: 0DTF4ZZ Resection of Right Large Intestine, Percutaneous Endoscopic Approach (ICD-10-PCS; principal; 2018-02-17 07:30)
PROC: 30233N1 Transfusion of Nonautologous Red Blood Cells into Peripheral Vein, Percutaneous Approach (ICD-10-PCS; 2018-02-19)
DX: C18.2 Malignant neoplasm of ascending colon (principal); N17.0 Acute kidney failure with tubular necrosis; E43 Unspecified severe protein-calorie malnutrition; E87.1 Hypo-osmolality and hyponatremia; I10 Essential (primary) hypertension; J44.9 Chronic obstructive pulmonary disease, unspecified; M06.9 Rheumatoid arthritis, unspecified; E03.9 Hypothyroidism, unspecified; G47.33 Obstructive sleep apnea (adult) (pediatric); Z88.1 Allergy status to other antibiotic agents; Z90.710 Acquired absence of both cervix and uterus; Z79.899 Other long term (current) drug therapy; Z85.72 Personal history of non-Hodgkin lymphomas
CPT/HCPCS: 36415; 80048; 83735; 85025; 86850; 86900; 86923; 88309; 93005; G0378; J1100; J1650; J1885; J2250; J2405; J2704; J2710; J3010; J3490; J0330; J7120; P9040; Q0163

== ENCOUNTER 2018-10-14 11:58 | Inpatient (IN) | payer MEDICARE ==
[~2018-10-14] VITALS: Ht 162.6 cm; Wt 60.2 kg
[2018-10-18 12:15] VITALS: BP 126/71
== END 2018-10-18 17:55 | disposition home or self-care (01) | DRG 194 ==
LOC: ED 12:31 → INTOOBSV 13:41 → EDIP 13:41 → UNDOADMOB 13:41 → 5SO 14:08 → EDIP 14:08 → 5SO 15:28 → OBSVTOIN 10-15 11:26
PROVIDERS: ADMIT Internal Medicine; ATTEND Internal Medicine
DX: R09.1 Pleurisy (principal); D68.69 Other thrombophilia; I48.0 Paroxysmal atrial fibrillation; D64.9 Anemia, unspecified; E03.9 Hypothyroidism, unspecified; I10 Essential (primary) hypertension; Z96.642 Presence of left artificial hip joint; I34.0 Nonrheumatic mitral (valve) insufficiency; M06.9 Rheumatoid arthritis, unspecified; Z79.01 Long term (current) use of anticoagulants; Z80.0 Family history of malignant neoplasm of digestive organs; Z85.038 Personal history of other malignant neoplasm of large intestine; Z85.71 Personal history of Hodgkin lymphoma; Z85.72 Personal history of non-Hodgkin lymphomas; Z87.891 Personal history of nicotine dependence; Z90.710 Acquired absence of both cervix and uterus; Z88.8 Allergy status to other drugs, medicaments and biological substances
CPT/HCPCS: 36415; 78452; 80048; 80061; 84443; 84484; 85025; 85379; 93005; 93017; 93306; 96374; 96375; G0378; J0153; J1650; J2785; A9502; C9898; J0280; J0282; J2270; J7060

== ENCOUNTER 2019-09-14 11:24 | Day surgery (SDC) | payer MEDICARE ==
[~2019-09-14] VITALS: Ht 162.6 cm; Wt 60.8 kg
[~2019-09-14 11:24] MED LIST changes: +APIX2.5T PO; +HYDR-3653 PO; +IBUP-1222 PO; +METO-93 PO; +OXYC-302 PO
[2019-09-14 12:05] VITALS: BP 139/79
[2019-09-14] MEDS ORDERED: SODIUM CHLORIDE 0.9% 1,000 ML IV SCH (12:10)
[2019-09-14] MEDS ORDERED: LIDOCAINE 1%, 20ML ONE (13:04)
[2019-09-14] MEDS ORDERED: FENTANYL PF 100 MCG/2ML ONE (13:46)
[2019-09-14] MEDS ORDERED: MIDAZOLAM 1 MG/ML, 5ML ONE (13:46)
[2019-09-14] MEDS ORDERED: FLUMAZENIL 0.1 MG/1 ML, 5ML ONE (13:46)
[2019-09-14] MEDS ORDERED: NALOXONE 1 MG/ML, 2ML ONE (13:47)
== END 2019-09-14 15:45 | disposition home or self-care (01) ==
LOC: OUT 11:24
PROVIDERS: ATTEND Pathology Hematology
DX: Z45.2 Encounter for adjustment and management of vascular access device (principal); C81.78 Other Hodgkin lymphoma, lymph nodes of multiple sites; C18.2 Malignant neoplasm of ascending colon; I10 Essential (primary) hypertension; G47.30 Sleep apnea, unspecified; M06.9 Rheumatoid arthritis, unspecified; D50.9 Iron deficiency anemia, unspecified; Z79.890 Hormone replacement therapy; Z79.899 Other long term (current) drug therapy; Z87.891 Personal history of nicotine dependence; Z90.49 Acquired absence of other specified parts of digestive tract; Z90.710 Acquired absence of both cervix and uterus; Z96.642 Presence of left artificial hip joint; Z98.890 Other specified postprocedural states; Z80.0 Family history of malignant neoplasm of digestive organs
CPT/HCPCS: 36590; 77001; 99156; 99157; J2250; J3010; J2310

== ENCOUNTER 2020-01-30 12:13 | Day surgery (SDC) | payer MEDICARE ==
[~2020-01-30] VITALS: Ht 161.3 cm; Wt 59.2 kg
[~2020-01-30 12:13] MED LIST changes: +ASCO100018 PO; -ASCO10004 PO
[2020-01-30] MEDS ORDERED: METO25TA35 PO (13:12)
[2020-01-30] MEDS ORDERED: PRED1TAB19 PO (13:13)
[2020-01-30 13:30] VITALS: BP 155/83
[2020-01-30] MEDS ORDERED: SODIUM CHLORIDE 0.9% 1,000 ML IV SCH (13:30)
[2020-01-30] MEDS ORDERED: THYR30TA PO (13:36)
[2020-01-30] MEDS ORDERED: LIDOCAINE 1%, 10ML ONE (13:38)
[2020-01-30] MEDS ORDERED: FENTANYL PF 100 MCG/2ML ONE ×2 (13:47)
[2020-01-30] MEDS ORDERED: MIDAZOLAM 1 MG/ML, 5ML ONE (13:47)
[2020-01-30] MEDS ORDERED: FLUMAZENIL 0.1 MG/1 ML, 5ML ONE (13:48)
[2020-01-30] MEDS ORDERED: NALOXONE 1 MG/ML, 2ML ONE (13:48)
== END 2020-01-30 15:50 | disposition home or self-care (01) ==
LOC: OUT 12:13 → EDSTATUS 14:30 → OUT 15:50
PROVIDERS: ATTEND Colon & Rectal Surgery
DX: R59.0 Localized enlarged lymph nodes (principal); C77.2 Secondary and unspecified malignant neoplasm of intra-abdominal lymph nodes; C19 Malignant neoplasm of rectosigmoid junction; K59.00 Constipation, unspecified; K62.5 Hemorrhage of anus and rectum; I10 Essential (primary) hypertension; J44.9 Chronic obstructive pulmonary disease, unspecified; E03.9 Hypothyroidism, unspecified; M06.9 Rheumatoid arthritis, unspecified; M19.90 Unspecified osteoarthritis, unspecified site; G47.30 Sleep apnea, unspecified; Z79.890 Hormone replacement therapy; Z79.891 Long term (current) use of opiate analgesic; Z79.899 Other long term (current) drug therapy; Z87.891 Personal history of nicotine dependence; Z88.8 Allergy status to other drugs, medicaments and biological substances; Z90.710 Acquired absence of both cervix and uterus; Z98.890 Other specified postprocedural states; Z90.49 Acquired absence of other specified parts of digestive tract; Z80.41 Family history of malignant neoplasm of ovary
CPT/HCPCS: 49180; 77012; 88305; 99156; 99157; J2250; J3010; J7030; J2310

== ENCOUNTER → 2020-02-15 | Outpatient (CLI) | payer MEDICARE ==
[~2020-02-15] MED LIST changes: +PRED1TAB19 PO; +THYR30TA PO
== END | disposition home or self-care (01) ==
LOC: ROC 07:48
PROVIDERS: ATTEND Radiology Radiation Oncology
DX: C19 Malignant neoplasm of rectosigmoid junction (principal); J44.9 Chronic obstructive pulmonary disease, unspecified; I10 Essential (primary) hypertension; E03.9 Hypothyroidism, unspecified; M06.9 Rheumatoid arthritis, unspecified; Z79.899 Other long term (current) drug therapy; Z98.890 Other specified postprocedural states; Z87.891 Personal history of nicotine dependence; Z79.891 Long term (current) use of opiate analgesic
CPT/HCPCS: G0463